=== PATIENT | male | born 1945 | race American Indian/Alaskan Native ===

== ENCOUNTER 2018-07-06 17:21 | Emergency (ER) | payer OTHER ==
[2018-07-06] MEDS ORDERED: VANCOMYCIN/NS 1 GM/250 ML 1 GM/250 ML BAG IV ONE (17:52)
[2018-07-06 18:35] LABS: BUN/Creatinine Ratio 10; Blood Urea Nitrogen 9 mg/dL (9-20); Calcium 9.3 mg/dL (8.4-10.2); Hemolysis Index 5
--- NOTE | 2018-07-06 18:39 | Emergency Department Report ---
HPI - General Chief Complaint: Extremity Problem,Nontraumatic Time Seen by Provider: 07/06/18 17:51 - HPI HPI: 73-year-old male presents to the emergency department with a complaint of swelling, redness and pain to the left foot that has been going on and getting progressively worse over the past week. Although he did not see any insect or see himself getting bitten, he guesses that maybe it started off as some type of an insect bite. He denies any past medical history. He has had a few days of subjective fever. He took an aspirin this morning and has taken 1 or 2 doses of one of his 's penicillin antibiotic pills. His primary care physician is Dr. Vega. No recent travel or sick contacts at home. ED Past Medical Hx - Past Medical History Previous Medical History?: No - Surgical History Past Surgical History?: No - Social History Smoking Status: Never Smoker Substance Use Type: Alcohol - Medications Home Medications: Home Medications Medication Instructions Recorded Confirmed Last Taken Type HYDROcodone/APAP 5-325 [[place] 1 each PO Q6HR PRN #12 tablet 07/06/18 Unknown Rx 5/325] Sulfamethoxazole/Trimethoprim 1 each PO BID #14 tablet 07/06/18 Unknown Rx [Bactrim DS TAB] cephALEXin [Keflex] 1,000 mg PO Q12HR #28 cap 07/06/18 Unknown Rx ED Review of Systems ROS: Stated complaint: LEFT FOOT SWOLLEN Other details as noted in HPI Comment: All other systems reviewed and negative Constitutional: chills, fever Eyes: denies: eye pain, eye discharge, vision change ENT: as per HPI Respiratory: denies: cough, shortness of breath, wheezing Cardiovascular: denies: chest pain, palpitations Gastrointestinal: denies: abdominal pain, nausea, diarrhea Genitourinary: denies: urgency, dysuria Musculoskeletal: joint swelling, arthralgia Skin: rash, change in color Neurological: denies: headache, weakness Physical Exam - Physical Exam Vital Signs: Vital Signs 07/06/18 17:34 Temperature 99.4 F Pulse Rate 105 H Respiratory 16 Rate Blood Pressure 129/56 O2 Sat by Pulse 97 Oximetry Physical Exam: GENERAL: The patient is well-developed well-nourished. HEENT: Normocephalic. Atraumatic. Patient has moist mucous membranes. EYES: Extraocular motions are intact. Pupils are equal and reactive to light bilaterally. NECK: Supple. Trachea is midline. CHEST/LUNGS: Clear to auscultation. There is no respiratory distress noted. HEART/CARDIOVASCULAR: Regular. There is no tachycardia. There is no gallop rub or murmur. ABDOMEN: Abdomen is soft, nontender. Patient has normal bowel sounds. There is no abdominal distention. SKIN: Patient has erythema and nonpitting swelling to the dorsum of the left foot consistent with a cellulitis. No fluctuance or crepitus. NEURO: The patient is awake, alert, and oriented. The patient is cooperative. The patient has no focal neurologic deficits. The patient has normal speech. MUSCULOSKELETAL: There is some tenderness on palpation to the dorsum of the left foot with patient has a cellulitis.. There is no limitation range of motion. There is no evidence of acute injury. ED Course Vital Signs 07/06/18 17:34 Temperature 99.4 F Pulse Rate 105 H Respiratory 16 Rate Blood Pressure 129/56 O2 Sat by Pulse 97 Oximetry ED Medical Decision Making - Lab Data Result diagrams: 07/06/18 17:58 07/06/18 17:58 - Radiology Data Radiology results: image reviewed interpreted by me: X-ray of the left foot does not show any subcutaneous gas, fracture, dislocation or signs of osteomyelitis. - Medical Decision Making Patient presents with a one-week history of some redness and swelling and discomfort to the left foot. On examination it appears consistent with a cellulitis. There is no crepitus or obvious fluctuants. X-ray was done that does not show any subcutaneous gas, signs of osteomyelitis, fracture, dislocation or any other acute process. Patient's labs were mostly unremarkable. There was no leukocytosis. Patient is afebrile with stable vitals. There was a slightly elevated first lactic acid level became down to a normal level with some IV fluid. Patient was given a dose of IV antibiotics. We will attempt to treat this patient outpatient to start if there is any worsening of his symptoms, signs of lymphangitis, development of a high-grade fever, or any distress, the patient will return to the emergency department. Otherwise he will follow-up with his primary care physician. He went home on antibiotics as well as pain medication. - Differential Diagnosis cellulitis, osteomyelitis, abscess, venous stasis Critical Care Time: No Critical care attestation.: If time is entered above; I have spent that time in minutes in the direct care of this critically ill patient, excluding procedure time. ED Disposition Clinical Impression: Cellulitis of left foot, Left foot pain Disposition: TO HOME OR SELFCARE Is pt being admited?: No Condition: Stable Instructions: Cellulitis (ED) Additional Instructions: Please follow-up with your primary care physician in the next few days. Take the antibiotics as prescribed. Return to the emergency department immediately with any worsening of her symptoms, streaking of red up the leg, development of fever, or with any acute distress. You have been prescribed a medication that can be sedating. Therefore this medication should not be mixed with alcohol of any quantity, and cannot be taken prior to driving, working, or being responsible for children. Prescriptions: cephALEXin [Keflex] 1,000 mg PO Q12HR #28 cap HYDROcodone/APAP 5-325 [[place] 5/325] 1 each PO Q6HR PRN #12 tablet PRN Reason: Pain Sulfamethoxazole/Trimethoprim [Bactrim DS TAB] 1 each PO BID #14 tablet Referrals: MATT CANSECO MD [Primary Care Provider] - 3-5 Days RAMILA REYES MD [Staff Physician] - 3-5 Days Time of Disposition: 19:52
[2018-07-06 18:42] LABS: Basophils % (Auto) 0.4 % (0.0-1.8); Eosinophils % (Auto) 0.4 % (0.0-4.3); Hemoglobin 11.9 gm/dl (11.8-15.2); Lymphocytes # (Auto) 0.7 K/mm3 (1.2-5.4); Lymphocytes % (Auto) 7.2 % (13.4-35.0); Mean Corpuscular HGB Conc 33 % (32-34); Mean Corpuscular Hemoglobin 30 pg (28-32); Mean Corpuscular Volume 91 fl (84-94); Monocytes # (Auto) 1.4 K/mm3 (0.0-0.8); Monocytes % (Auto) 14.7 % (0.0-7.3); Platelet Count 264 K/mm3 (140-440); Red Blood Count 3.95 M/mm3 (3.65-5.03); Red Cell Distribution Width 13.4 % (13.2-15.2)
--- NOTE | 2018-07-06 18:42 | XRay Report ---
FINAL REPORT EXAM: XR FOOT 3+V LT HISTORY: foot pain, infection TECHNIQUE: 3 views of left foot. PRIORS: None. FINDINGS: Diffuse osteopenia. No apparent fracture, dislocation or obvious osseous destruction. Joint spaces maintained. Diffuse dorsal soft tissue edema in the mid and forefoot. IMPRESSION: 1. No acute osseous abnormality. 2. Soft tissue edema.
[2018-07-06] MEDS ORDERED: NACL 0.9% 1000 ML 1,000 ML IV ONE (19:00)
[2018-07-06] MEDS ORDERED: NORCO 5/325 PO ONE (19:49)
[2018-07-06 19:56] VITALS: BP 123/64
[2018-07-06] MEDS ORDERED: TYLENOL ONE (20:37)
[2018-07-06] MEDS ORDERED: TYLENOL PO ONE (20:45)
== END 2018-07-06 21:07 | disposition home or self-care (01) ==
LOC: ED 17:21
DX: L03.116 Cellulitis of left lower limb (principal)
CPT/HCPCS: 36415; 73630; 80048; 82140; 85025; 87040; 96365; 99284; J3370; J7030

== ENCOUNTER 2019-01-12 17:15 | Inpatient (IN) | payer MEDICARE, OTHER ==
[2019-01-12] MEDS ORDERED: ACTIVASE ONE (17:31)
[2019-01-12] MEDS ORDERED: NACL 0.9% 1000 ML 1,000 ML ONE (17:32)
--- NOTE | 2019-01-12 17:40 | Cat Scan Report ---
PROCEDURE: CT head without contrast. TECHNIQUE: Computerized tomography of the head was performed without contrast material. CT DOSE LENGTH PRODUCT: 928.6 mGycm HISTORY: Stroke symptoms. COMPARISONS: None. FINDINGS: There is mild cerebral atrophy. There is minimal evidence of chronic ischemic white matter disease. T here are no definite signs of acute infarction. An MRI scan with diffusion-weighted imaging is the mo st sensitive means of detecting an acute stroke. There are no mass lesions. There is no intracranial hemorrhage. The calvarium appears intact. The mastoid air cells and paranasal sinuses are clear as fa r as visualized. IMPRESSION: Normal study for age. This document is electronically signed by Channing Anna MD., Jan 12 2019 05:38:02 PM ET
[2019-01-12 17:51] LABS: Basophils % (Auto) 0.7 % (0.0-1.8); Eosinophils # (Auto) 0.1 K/mm3 (0.0-0.4); Eosinophils % (Auto) 1.7 % (0.0-4.3); Hematocrit 32.1 % (35.5-45.6); Hemoglobin 10.9 gm/dl (11.8-15.2); Lymphocytes # (Auto) 0.9 K/mm3 (1.2-5.4); Lymphocytes % (Auto) 24.1 % (13.4-35.0); Mean Corpuscular HGB Conc 34 % (32-34); Mean Corpuscular Volume 91 fl (84-94); Monocytes # (Auto) 0.4 K/mm3 (0.0-0.8); Monocytes % (Auto) 12.1 % (0.0-7.3); Platelet Count 189 K/mm3 (140-440); Red Blood Count 3.52 M/mm3 (3.65-5.03); Red Cell Distribution Width 14.1 % (13.2-15.2)
[2019-01-12] MEDS ORDERED: NACL 0.9% IV ONE (17:53)
[2019-01-12] MEDS ORDERED: NORMODYNE IV PRN (17:53)
[2019-01-12] MEDS ORDERED: ACTIVASE IV ONE ×2 (17:53)
--- NOTE | 2019-01-12 17:55 | Emergency Department Report ---
ED Neuro Deficit HPI - General Chief Complaint: Neuro Symptoms/Deficit Stated Complaint: CVA Time Seen by Provider: 01/12/19 17:17 Source: patient, family, EMS (verbal report received from EMS.ems notes not available at time of chart dictation), RN notes reviewed Mode of arrival: Stretcher Limitations: Physical Limitation - History of Present Illness Initial Comments: Primary care DrEstefany: Megan Villa This is a 73-year-old gentleman, not known to this provider previously, presenting to the emergency room with EMS as a possible code stroke. Patient reports being in his usual state of health, until approximately 4:30 PM this afternoon. At around that time, developed left-sided weakness, and facial droop. Emergency medical services were contacted. Accu-Chek normal in the field. Accu-Chek normal in the emergency room. In the emergency room, patient found to be awake, alert, oriented, with left-sided weakness and facial droop. He reported no contraindications to TPA. Noncontrast CT scan of the brain was found negative for acute disease. Ext ensive discussion had with patient and . Risks and benefits of TPA were discussed with both of them, including the possibility of fatal hemorrhagic conversion/complication, , and allergic reaction. Patient and family have given informed consent for TPA. Patient also seen and interviewed stroke neurology, Dr. Jose Dalton, who agreed with administration of TPA. Currently, patient's left arm weakness appears to be improved. His left leg weakness improved. Left facial droop is still present although improved. Angiogram of the head and neck has been performed, and interpretation is pending to assess for potential large vessel occlusion. -: Sudden Location: left face, right arm, left leg Presenting Symptoms: Present: Weak/Paralyzed One Side History of same: No Place: home Severity: severe Quality: weak Improves With: none Worsens With: none On Anticoagulants: No Context: sudden onset - Related Data Home Medications: Home Medications Medication Instructions Recorded Confirmed Last Taken Amlodipine Besylate [Norvasc] 5 mg PO DAILY 01/12/19 01/12/19 Unknown AtorvaSTATin [Lipitor] 20 mg PO DAILY 01/12/19 01/12/19 Unknown Ferrous Sulfate [Iron 325 MG] 325 mg PO BID 01/12/19 01/12/19 Unknown Lisinopril [Zestril TAB] 40 mg PO DAILY 01/12/19 01/12/19 Unknown Allergies/Adverse Reactions: Allergies Allergy/AdvReac Type Severity Reaction Status Date / Time No Known Allergies Allergy Verified 07/06/18 17:34 ED Review of Systems ROS: Stated complaint: CVA Other details as noted in HPI Constitutional: denies: fever Eyes: denies: eye discharge ENT: denies: epistaxis Respiratory: denies: cough Cardiovascular: denies: chest pain Gastrointestinal: denies: abdominal pain, hematemesis, melena, hematochezia Genitourinary: denies: hematuria Musculoskeletal: denies: back pain Neurological: weakness, numbness, paresthesias ED Past Medical Hx - Social History Smoking Status: Never Smoker Substance Use Type: Alcohol - Medications Home Medications: Home Medications Medication Instructions Recorded Confirmed Last Taken Type Amlodipine Besylate [Norvasc] 5 mg PO DAILY 01/12/19 01/12/19 Unknown History AtorvaSTATin [Lipitor] 20 mg PO DAILY 01/12/19 01/12/19 Unknown History Ferrous Sulfate [Iron 325 MG] 325 mg PO BID 01/12/19 01/12/19 Unknown History Lisinopril [Zestril TAB] 40 mg PO DAILY 01/12/19 01/12/19 Unknown History ED Neuro Physical Exam - General Limitations: Physical Limitation General appearance: alert, anxious, in distress Suspected Stroke: Yes - Head Head exam: Present: atraumatic, normocephalic - Eye Eye exam: Present: normal appearance, PERRL, EOMI. Absent: nystagmus - ENT ENT exam: Present: normal exam, normal orophraynx, mucous membranes moist, normal external ear exam - Neck Neck exam: Present: normal inspection, full ROM. Absent: tenderness, meningismus - Respiratory Respiratory exam: Present: normal lung sounds bilaterally. Absent: respiratory distress - Cardiovascular Cardiovascular Exam: Present: regular rate, normal rhythm, normal heart sounds. Absent: bradycardia, tachycardia, irregular rhythm, systolic murmur, diastolic murmur, rubs, gallop - GI/Abdominal GI/Abdominal exam: Present: soft. Absent: distended, tenderness, guarding, rebound, rigid, pulsatile mass - Rectal Rectal exam: Present: deferred - Extremities Exam Extremities exam: Present: normal inspection, full ROM (right arm, right leg), other (2+ pulses noted in the bilateral upper, lower extremities. Compartments soft. No long bony tenderness. The pelvis is stable.). Absent: pedal edema, joint swelling, calf tenderness - Back Exam Back exam: Present: normal inspection, full ROM. Absent: tenderness, CVA tenderness (R), paraspinal tenderness, vertebral tenderness - Neurological Exam Neurological exam: Present: alert, oriented X3, motor sensory deficit (there is left-sided leg weakness. There is left-sided arm weakness. There is left-sided facial droop.) - NIHSS Assessment Interval: Baseline 1a. Level of Consciousness: alert/keenly responsive 1b. LOC Questions: answers both correctly 1c. LOC Commands: performs tasks correctly 2. Best Gaze: normal 3. Visual: no visual loss 4. Facial Palsy: minor paralysis 5b. Motor Arm Right: no drift 5a. Motor Arm Left: some gravity effort 6a. Motor Leg Left: some gravity effort 6b. Motor Leg Right: no drift 7. Limb Ataxia: absent 8. Sensory: normal 9. Best Language: no aphasia 10. Dysarthria: normal 11. Extinction/Inattention: no abnormality Total Score: 5 Stroke Severity: Moderate Stroke - Psychiatric Psychiatric exam: Present: anxious - Skin Skin exam: Present: warm, dry, intact, normal color. Absent: rash ED Course Vital Signs 01/12/19 01/12/19 01/12/19 17:37 17:42 17:46 Temperature Pulse Rate 63 63 Pulse Rate [ 64 Left Arm] Respiratory 18 14 Rate Respiratory 16 Rate [Left Arm] Blood Pressure Blood Pressure 133/73 [Left Arm] Blood Pressure 131/72 [Right] O2 Sat by Pulse 98 100 Oximetry O2 Sat by Pulse 100 Oximetry [Left Arm] 01/12/19 01/12/19 01/12/19 17:58 17:59 18:15 Temperature Pulse Rate 62 72 58 L Pulse Rate [ Left Arm] Respiratory 15 16 17 Rate Respiratory Rate [Left Arm] Blood Pressure 145/76 Blood Pressure 145/71 [Left Arm] Blood Pressure 130/80 [Right] O2 Sat by Pulse 100 99 100 Oximetry O2 Sat by Pulse Oximetry [Left Arm] 01/12/19 01/12/19 01/12/19 18:20 18:23 18:25 Temperature Pulse Rate 57 L 60 60 Pulse Rate [ Left Arm] Respiratory 17 13 18 Rate Respiratory Rate [Left Arm] Blood Pressure 150/78 150/78 155/77 Blood Pressure [Left Arm] Blood Pressure 155/77 [Right] O2 Sat by Pulse 100 100 100 Oximetry O2 Sat by Pulse Oximetry [Left Arm] 01/12/19 01/12/19 01/12/19 18:26 18:29 18:31 Temperature Pulse Rate 59 L 58 L 64 Pulse Rate [ Left Arm] Respiratory 16 14 16 Rate Respiratory Rate [Left Arm] Blood Pressure 155/77 155/77 155/79 Blood Pressure [Left Arm] Blood Pressure [Right] O2 Sat by Pulse 99 100 99 Oximetry O2 Sat by Pulse Oximetry [Left Arm] 01/12/19 01/12/19 01/12/19 18:33 18:34 18:35 Temperature 98.3 F Pulse Rate 56 L 78 61 Pulse Rate [ Left Arm] Respiratory 15 16 13 Rate Respiratory Rate [Left Arm] Blood Pressure 155/79 130/82 151/83 Blood Pressure [Left Arm] Blood Pressure [Right] O2 Sat by Pulse 100 99 99 Oximetry O2 Sat by Pulse Oximetry [Left Arm] 01/12/19 01/12/19 01/12/19 18:36 18:39 18:41 Temperature Pulse Rate 61 64 61 Pulse Rate [ Left Arm] Respiratory 14 17 14 Rate Respiratory Rate [Left Arm] Blood Pressure 151/83 151/83 149/73 Blood Pressure [Left Arm] Blood Pressure [Right] O2 Sat by Pulse 99 98 100 Oximetry O2 Sat by Pulse Oximetry [Left Arm] 01/12/19 01/12/19 01/12/19 18:43 18:45 18:46 Temperature Pulse Rate 59 L 62 61 Pulse Rate [ Left Arm] Respiratory 15 17 13 Rate Respiratory Rate [Left Arm] Blood Pressure 149/73 154/79 154/79 Blood Pressure [Left Arm] Blood Pressure [Right] O2 Sat by Pulse 100 100 100 Oximetry O2 Sat by Pulse Oximetry [Left Arm] 01/12/19 01/12/19 18:58 19:01 Temperature Pulse Rate 61 60 Pulse Rate [ Left Arm] Respiratory 15 11 L Rate Respiratory Rate [Left Arm] Blood Pressure 153/77 Blood Pressure [Left Arm] Blood Pressure [Right] O2 Sat by Pulse 100 100 Oximetry O2 Sat by Pulse Oximetry [Left Arm] - Reevaluation(s) Reevaluation #1: 01/12/19 18:55 Differential diagnosis, including but not limited to: Stroke, TIA, conversion d isorder, electrolyte derangement, Sam's paralysis Assessment and plan: 73-year-old gentleman with symptoms concerning for acute ischemic stroke. Patient meets criteria for administration of TPA. Risks and benefits/alternatives were discussed extensively with patient and , in conjunction with our consulting stroke neurology specialist. Patient and have given informed consent for TPA administration. On reexamination, strength and range of motion appeared to be improved in the left arm and leg. Left facial droop appears to be improved. [facility] called this provider and informed me that the Angiogram of the head and neck have not demonstrate any large vessel occlusion that would require transfer for emergent surgical intervention. The patient will be admitted to this hospital for post TPA and acute stroke care. Critical care physician on-call is paged. Hospital physician plant technician/control room operator is paged. Discussed findings with patient and . 01/12/19 19:15 Reevaluation #2: 01/12/19 19:01 Dr Herrera to admit to the medical service Reevaluation #3: 01/12/19 20:13 The angiogram report is reviewed and appreciated. Found to have an incidental left-sided carotid stenosis without plaque. I do not anticipate that this would require emergent endovascular intervention. will discuss with endovascular stroke at [place] Reevaluation #4: 01/12/19 20:20 CT angiogram discussed with interventional stroke neurology at [place], Dr. Chelsie Velázquez, who indicates these findings, in conjunction with the history and physical, did not require emergent endovascular intervention. He advises that this is likely an incidental finding, and does not require emergent or urgent intervention. He advises that this may be followed up as an outpatient, and i am in agreement. - Consultations Consultation #1: 01/12/19 19:16 Dr Britney Santos to follow and agrees with placement into the ICU - Lab Data Result diagrams: 01/12/19 17:35 01/12/19 17:35 Lab Results 01/12/19 01/12/19 01/12/19 Range/Units 17:35 17:35 17:35 WBC 3.6 L (4.5-11.0) K/mm3 RBC 3.52 L (3.65-5.03) M/mm3 Hgb 10.9 L (11.8-15.2) gm/dl Hct 32.1 L (35.5-45.6) % MCV 91 (84-94) fl MCH 31 (28-32) pg MCHC 34 (32-34) % RDW 14.1 (13.2-15.2) % Plt Count 189 (140-440) K/mm3 Lymph % (Auto) 24.1 (13.4-35.0) % Sanders % (Auto) 12.1 H (0.0-7.3) % Eos % (Auto) 1.7 (0.0-4.3) % Baso % (Auto) 0.7 (0.0-1.8) % Lymph # 0.9 L (1.2-5.4) K/mm3 Sanders # 0.4 (0.0-0.8) K/mm3 Eos # 0.1 (0.0-0.4) K/mm3 Baso # 0.0 (0.0-0.1) K/mm3 Seg Neutrophils % 61.4 (40.0-70.0) % Seg Neutrophils # 2.2 (1.8-7.7) K/mm3 PT 13.7 (12.2-14.9) Sec. INR 0.99 (0.87-1.13) APTT 28.0 (24.2-36.6) Sec. Thrombin Time 16.5 (15.1-19.6) Sec. Sodium 142 (137-145) mmol/L Potassium 3.3 L (3.6-5.0) mmol/L Chloride 106.4 (98-107) mmol/L Carbon Dioxide 19 L (22-30) mmol/L Anion Gap 20 mmol/L BUN 16 (9-20) mg/dL Creatinine 1.4 (0.8-1.5) mg/dL Estimated GFR > 60 ml/min BUN/Creatinine Ratio 11 % Glucose 166 H (75-100) mg/dL Calcium 8.7 (8.4-10.2) mg/dL Magnesium (1.7-2.3) mg/dL Total Bilirubin 0.80 (0.1-1.2) mg/dL AST 73 H (5-40) units/L ALT 54 (7-56) units/L Alkaline Phosphatase 98 (35-129) units/L Total Creatine Kinase 135 (55-170) units/L CK-MB (CK-2) 3.9 (0.0-4.0) ng/mL CK-MB (CK-2) Rel Index 2.8 (0-4) Troponin T < 0.010 (0.00-0.029) ng/mL Total Protein 5.7 L (6.3-8.2) g/dL Albumin 3.2 L (3.9-5) g/dL Albumin/Globulin Ratio 1.3 % 01/12/19 Range/Units 17:35 WBC (4.5-11.0) K/mm3 RBC (3.65-5.03) M/mm3 Hgb (11.8-15.2) gm/dl Hct (35.5-45.6) % MCV (84-94) fl MCH (28-32) pg MCHC (32-34) % RDW (13.2-15.2) % Plt Count (140-440) K/mm3 Lymph % (Auto) (13.4-35.0) % Sanders % (Auto) (0.0-7.3) % Eos % (Auto) (0.0-4.3) % Baso % (Auto) (0.0-1.8) % Lymph # (1.2-5.4) K/mm3 Sanders # (0.0-0.8) K/mm3 Eos # (0.0-0.4) K/mm3 Baso # (0.0-0.1) K/mm3 Seg Neutrophils % (40.0-70.0) % Seg Neutrophils # (1.8-7.7) K/mm3 PT (12.2-14.9) Sec. INR (0.87-1.13) APTT (24.2-36.6) Sec. Thrombin Time (15.1-19.6) Sec. Sodium (137-145) mmol/L Potassium (3.6-5.0) mmol/L Chloride (98-107) mmol/L Carbon Dioxide (22-30) mmol/L Anion Gap mmol/L BUN (9-20) mg/dL Creatinine (0.8-1.5) mg/dL Estimated GFR ml/min BUN/Creatinine Ratio % Glucose (75-100) mg/dL Calcium (8.4-10.2) mg/dL Magnesium 1.60 L (1.7-2.3) mg/dL Total Bilirubin (0.1-1.2) mg/dL AST (5-40) units/L ALT (7-56) units/L Alkaline Phosphatase (35-129) units/L Total Creatine Kinase (55-170) units/L CK-MB (CK-2) (0.0-4.0) ng/mL CK-MB (CK-2) Rel Index (0-4) Troponin T (0.00-0.029) ng/mL Total Protein (6.3-8.2) g/dL Albumin (3.9-5) g/dL Albumin/Globulin Ratio % Vital Signs 01/12/19 01/12/19 01/12/19 17:37 17:42 17:46 Temperature Pulse Rate 63 63 Pulse Rate [ 64 Left Arm] Respiratory 18 14 Rate Respiratory 16 Rate [Left Arm] Blood Pressure Blood Pressure 133/73 [Left Arm] Blood Pressure 131/72 [Right] O2 Sat by Pulse 98 100 Oximetry O2 Sat by Pulse 100 Oximetry [Left Arm] 01/12/19 01/12/19 01/12/19 17:58 17:59 18:15 Temperature Pulse Rate 62 72 58 L Pulse Rate [ Left Arm] Respiratory 15 16 17 Rate Respiratory Rate [Left Arm] Blood Pressure 145/76 Blood Pressure 145/71 [Left Arm] Blood Pressure 130/80 [Right] O2 Sat by Pulse 100 99 100 Oximetry O2 Sat by Pulse Oximetry [Left Arm] 01/12/19 01/12/19 01/12/19 18:20 18:23 18:25 Temperature Pulse Rate 57 L 60 60 Pulse Rate [ Left Arm] Respiratory 17 13 18 Rate Respiratory Rate [Left Arm] Blood Pressure 150/78 150/78 155/77 Blood Pressure [Left Arm] Blood Pressure 155/77 [Right] O2 Sat by Pulse 100 100 100 Oximetry O2 Sat by Pulse Oximetry [Left Arm] 01/12/19 01/12/19 01/12/19 18:26 18:29 18:31 Temperature Pulse Rate 59 L 58 L 64 Pulse Rate [ Left Arm] Respiratory 16 14 16 Rate Respiratory Rate [Left Arm] Blood Pressure 155/77 155/77 155/79 Blood Pressure [Left Arm] Blood Pressure [Right] O2 Sat by Pulse 99 100 99 Oximetry O2 Sat by Pulse Oximetry [Left Arm] 01/12/19 18:34 Temperature 98.3 F Pulse Rate 78 Pulse Rate [ Left Arm] Respiratory 16 Rate Respiratory Rate [Left Arm] Blood Pressure 130/82 Blood Pressure [Left Arm] Blood Pressure [Right] O2 Sat by Pulse 99 Oximetry O2 Sat by Pulse Oximetry [Left Arm] - EKG Data -: EKG Interpreted by Ks EKG shows normal: sinus rhythm Rate: normal 01/12/19 18:54 Sinus rhythm, 64 beats per minute, low voltage, borderline left axis deviation, QTC within normal limits, not having chest pain, MD interval within normal limits, this is a nonspecifically abnormal EKG. It is not consistent with ST e levation myocardial infarction. - Radiology Data Radiology results: report reviewed, image reviewed CT scan of the brain is negative for acute disease. Print Report Referring Physician: CHANNING KOWALSKI Patient Name: LUCERO REDDY Date of : 1945 Sex: Male Report Date: 2019-01-12 Report Status: [place] [address] Cat Scan Report Signed Patient: LUCERO REDDY MR#: [id number] : 1945 Acct:[id number] Age/Sex: 73 / M ADM Date: 01/12/19 Loc: CC1 [id number]: SUZIE HERRERA MD Ordering Physician: CHANNING KOWALSKI MD Date of Service: 01/12/19 Procedure(s): CT angio head Accession Number(s): [id number] cc: CHANNING KOWALSKI MD PROCEDURE: CT angiogram head with contrast. TECHNIQUE: Computerized tomographic angiography of the head was performed after the IV injection of iodinated nonionic contrast including image processing. The image data was postprocessed using 2-dimensional multiplanar reformatted (MPR) and 3-dimensional (MIP and/or volume rendered) techniques. CT DOSE LENGTH PRODUCT: 928.6 mGycm HISTORY: Stroke symptoms. COMPARISONS: None. FINDINGS: The distal right internal carotid artery appears normal. The distal left internal carotid artery is small. This is probably secondary to reduced perfusion pressure due to the severe cervical carotid stenosis. Both anterior cerebral arteries are patent. The anterior communicating artery is patent. Both middle cerebral arteries are patent. Both posterior communicating arteries are probably patent. Both distal vertebral arteries are patent with the right vertebral being dominant. Both posterior inferior cerebellar arteries are patent. The basilar artery is patent. The right anterior inferior cerebellar artery is faintly visible. The left AICA is not definitely discernible. Both superior cerebellar and both posterior cerebral arteries are patent. There are no signs of aneurysm disease. There is no evidence of a vasculitis. There are no signs of abnormal contrast enhancement within the brain parenchyma. IMPRESSION: Narrow distal left internal carotid artery which is likely secondary to diminished perfusion pressure. Otherwise normal study. This document is electronically signed by Channing Ramos MD., Jan 12 2019 08:01:42 PM ET Transcribed By: MRM Dictated By: CHANNING RAMOS MD Electronically Authenticated By: CHANNING RAMOS MD Signed Date/Time: 01/12/192002 Print Report Referring Physician: CHANNING KOWALSKI Patient Name: LUCERO REDDY Date of : 1945 Sex: Male Report Date: 2019-01-12 Report Status: [place] [address] Cat Scan Report Signed Patient: LUCERO REDDY MR#: [id number] : 1945 Acct:[id number] Age/Sex: 73 / M ADM Date: 01/12/19 Loc: CC1 [id number]: SUZIE HERRERA MD Ordering Physician: CHANNING KOWALSKI MD Date of Service: 01/12/19 Procedure(s): CT angio neck Accession Number(s): [id number] cc: CHANNING KOWALSKI MD PROCEDURE: CT angiogram neck with contrast. TECHNIQUE: Computerized tomographic angiography of the neck was performed after the IV injection of iodinated nonionic contrast including image processing. The image data was postprocessed using 2- dimensional multiplanar reformatted (MPR) and 3-dimensional (MIP and/or volume rendered) techniques. CT DOSE LENGTH PRODUCT: 826.7 mGycm HISTORY: Stroke symptoms. COMPARISONS: None. Note: Assessment of carotid artery stenosis is based on measurement of the distal internal carotid artery diameter as the denominator for stenosis calculations and the [place] Symptomatic Carotid Endarterectomy Trial (NASCET) stenosis criteria. FINDINGS: The origins of the innominate artery, left common carotid artery and left subclavian artery are widely patent. Both common carotid arteries are widely patent. There is a small amount of calcified plaque at the right carotid artery bifurcation. The origins of the internal carotid and external carotid arteries are widely patent. The cervical portion of the right internal carotid artery is widely patent. There is a small amount of calcified plaque on the lateral side of the left carotid bulb. There is additional calcified plaque surrounding the proximal left internal carotid artery. Approximately 1.5 cm beyond the origin of the left internal carotid artery there is a critical concentric stenosis. The lumen diameter is decreased by approximately 95%. The cervical portion of the internal carotid artery distal to this stenosis is patent but small. This is likely secondary to reduced perfusion pressure. The left external carotid artery is widely patent. Both vertebral arteries are patent with the right vertebral being dominant. The soft tissues of the neck are unremarkable. The bones appear intact. The paranasal sinuses and mastoid air cells are clear. IMPRESSION: Critical 95% stenosis in the proximal left internal carotid artery. Satisfactory appearance of the right internal carotid artery. This document is electronically signed by Channing Ramos MD., Jan 12 2019 07:53:35 PM ET Transcribed By: MRM Dictated By: CHANNING RAMOS MD Electronically Authenticated By: CHANNING RAMOS MD Signed Date/Time: 01/12/191954 - Core Measures Measure Exclusions: not indicated - Thrombolytic Inclusion/Exclusion Thrombolytic Inclusion Criteria: Ischemic Stroke Onset< 3h, NIH Stroke Scale Deficit, Negative CT Scan for ICH, Age 18 or Older, Glucose of 50-400mg/dl Critical Care Time: Yes Critical care time in (mins) excluding proc time.: 120 Critical care attestation.: If time is entered above; I have spent that time in minutes in the direct care of this critically ill patient, excluding procedure time. ED Disposition Clinical Impression: Acute ischemic stroke Disposition: DC-09 OP ADMIT IP TO THIS HOSP Is pt being admited?: Yes Condition: Critical
[2019-01-12 18:01] LABS: INR 0.99 (0.87-1.13)
[2019-01-12 18:02] LABS: Thrombin Time 16.5 Sec. (15.1-19.6)
--- NOTE | 2019-01-12 18:11 | Emergency Department Report ---
Blank Doc - Documentation Documentation: [facility] TeleNeurology Consult Services Impression: * RO Acute Ischemic Stroke. Patient is a 73 year old man who presents with history of acute onset left sided weakness onset noted at 430 pm, witnessed onset. Presentation is suggestive of right MCA distribution cortical infarct. There is no indication of underlying anticoagulants intake, history of hemorrhagic complications, or recent procedures. The patient is deemed to be candidate for tPA thrombolytics. Risks, benefits, and potential alternatives, including no treatment, were explained to the patient and at bedside. Patient and expressed understanding of the above, and agreed to proceed with the above. IV tPA bolus was given without complications. Bolus was started. CTA head and neck obtained , and negative for LVO disease per radiology. Comments: LSN: 16:30 Arrival Time:1710 [facility] contacted: 1707 [facility] at bedside: 171 NIHSS assessment time: 171 tPA bolus time: 1736 Tele[employer]istsVerbal Consent totPA: I have explained to the patient/family/guardian the nature of the patients condition, the use oftPAfibrinolytic agent, and the benefits to be reasonably expected compared with alternative approaches. I have discussed the likelihood of major risks or complications of this procedure including (if applicable) but not limited to loss of limb function, brain damage, paralysis, hemorrhage, infection, complications from transfusion of blood components, drug reactions, blood clots and loss of life. I have also indicated that with any procedure there is always the possibility of an unexpected complication. All questions were answered and the patient/family/guardian express understanding of the treatment plan and consent to the procedure. Our recommendations are outlined below.? We will be seeing the patient back in follow up as noted.? Recommendations: * Patient received tPA thrombolytics without complications, and actually has had some improvement. * CTA head and neck did not show indication of LVO disease. * Patient is to be admitted with post tPA orders to the ICU as per protocol. * No antithrombtics or anticoagulants. * DVT prophylaxis. * Lipid panel. * MRI Head in am. Post tPA recommendations: Routine posttPAmonitoring including neuro checks and blood pressure control during/after treatment Monitor blood pressure Check blood pressure and NIHSS every 15 min for 2 h, then every 30 min for 6 h, and finally every hour for 16 h Systolic greater than 180OR diastolicgreater than 105: Option 1: Labetalol 10mg IV for 1 - 2 min May repeat or double labetalol every 10 min to maximum dose of 300 mg, or give initial labetalol dose, then start labetalol drip at 2 - 8 mg/min. Option 2: Nicardipine 5 mg/h IV infusion as initial dose and titrate to desired effect by increasing 2.5 mg/h every 5 min to maximum of 15 mg/h; If blood pressure is not controlled bylabetololor nicardipine, consider sodium nitroprusside. * Admission to ICU * CT brain 24 hours posttPA * NPO until swallowing screen performed and passed * No antiplatelet agents or anticoagulants (including heparinfor DVT prophylaxis) in first 24 hours * No Goldman catheter, nasogastric tube, arterial catheter or central venous catheter for 24hr, unless absolutely necessary * Telemetry * Inpatient Neurology Consultation * Stroke evaluation as per inpatient neurology recommendations Discussed with ED MD Seymour Dalton MD [employer] History of Present Illness Patient is a pleasant 73-year-old man who presents with history of left sided weakness. Patient's states that she observed him have a fall at 4:30 PM and since then, has had significant left upper and lower extremity weakness. No other associated symptoms identified. Patient has never had a prior history of intracranial hemorrhage and has not been on anticoagulants or antithrombotics. 1A: Level of Consciousness - Alert; keenly responsive 0 1B: Ask Month and Age - Both Questions Right 0 1C: 'Blink Eyes' & 'Squeeze Hands' - Performs Both Tasks 0 2: Test Horizontal Extraocular Movements - Normal 0 3: Test Visual Mendez - No Visual Loss 0 4: Test Facial Palsy - Minor paralysis (flat nasolabial fold, smile asymetry) +1 5A: Test Left Arm Motor Drift - Drift, hits bed +2 5B: Test Right Arm Motor Drift - No Drift for 10 Seconds 0 6A: Test Left Leg Motor Drift - No Movement +4 6B: Test Right Leg Motor Drift - No Drift for 5 Seconds 0 7: Test Limb Ataxia - No Ataxia 0 8: Test Sensation - Mild-Moderate Loss: Less Sharp/More Dull +1 9: Test Language/Aphasia - Normal; No aphasia 0 10: Test Dysarthria - Mild-Moderate Dysarthria: Slurring but can be understood +1 11: Test Extinction/Inattention - No abnormality 0 NIHSS 9 Medical Decision Making: - Extensive number of diagnosis or management options are considered above.? - Extensive amount of complex data reviewed.? - High risk of complication and/or morbidity or mortality are associated with differential diagnostic considerations above. - There may be Uncertain outcome and increased probability of prolonged functional impairment or high probability of severe prolonged functional impairment associated with some ofthese differential diagnosis. Medical Data Reviewed: 1.Data reviewed include clinical labs,radiology,?MedicalTests;? 2.Tests results discussed w/performing or interpreting physician;? 3.Obtaining/reviewing old medical records; 4.Obtaining case history from another source; 5.Independent review of image, tracing or specimen. Patient was informed the Neurology Consult would happen via telehealth (remote video) and consented to receiving care in this manner.
[2019-01-12 18:16] LABS: Creatine Kinase MB 3.9 ng/mL (0.0-4.0)
[2019-01-12 18:17] LABS: Alanine Aminotransferase 54 units/L (7-56); Albumin 3.2 g/dL (3.9-5); BUN/Creatinine Ratio 11; Blood Urea Nitrogen 16 mg/dL (9-20); Calcium 8.7 mg/dL (8.4-10.2); Hemolysis Index 9
[2019-01-12] MEDS ORDERED: K-DUR PO ONE ×2 (18:51→19:36)
[2019-01-12] MEDS ORDERED: DULCOLAX PR PRN (19:01)
[2019-01-12] MEDS ORDERED: PHENERGAN PR PRN (19:01)
[2019-01-12] MEDS ORDERED: ZOFRAN IV PRN (19:01)
[2019-01-12] MEDS ORDERED: REGLAN PO PRN (19:01)
[2019-01-12] MEDS ORDERED: SODIUM CHLORIDE FLUSH SYRINGE 10 ML IV PRN (19:01)
[2019-01-12] MEDS ORDERED: TYLENOL PO PRN (19:01)
[2019-01-12] MEDS ORDERED: MILK OF MAGNESIA PO PRN (19:01)
--- NOTE | 2019-01-12 19:06 | History and Physical Report ---
History of Present Illness Chief complaint: I feel weak on my left side History of present illness: 73 YO Male with HTN, HLD, Anemia presents to ED for evaluation. Pt was in his usual state of health and was doing work in his lawn. Pt went back into his home upon completion of his work around 1630hrs. Pt then experienced a sudden onset of dizziness and is unable to provide further details regarding his dizziness and confusion. Pt and son are at bedside and provide further details. As per family, the patient became momentarily confused and developed left-sided weakness, and facial droop. Emergency Medical Services was notified, and upon arrival the patient was found to have a neurologic deficit. A Code Stroke was called and the patient was transported to [facility]. Pt seen and evaluated in ED and found to have symptoms consistent with CVA. Teleneurology consulted, and patient treated with TPA with improvement in symptoms. Pt initiated on CVA protocol and admitted to ICU. Neurology consulted. Pt denies fever, chills, CP, Palpitations, NVD, Trauma, Falls, productive cough, skin rash, recent ill contacts, prolonged travel/immobility, unilateral leg swelling, calf pain, individual/family history of DVT/PE/Blood clotting disorders. No prior admission for review. All listed medication reconciled at time of exam. PCP: Corinne. Past History Past Medical History: anemia, hypertension, hyperlipidemia Past Surgical History: No surgical history, Other (reviewed) Social history: , lives with family. denies: smoking, alcohol abuse, prescription drug abuse Family history: hypertension Medications and Allergies Allergies Allergy/AdvReac Type Severity Reaction Status Date / Time No Known Allergies Allergy Verified 07/06/18 17:34 Home Medications Medication Instructions Recorded Confirmed Last Taken Type Amlodipine Besylate [Norvasc] 5 mg PO DAILY 01/12/19 01/12/19 Unknown History AtorvaSTATin [Lipitor] 20 mg PO DAILY 01/12/19 01/12/19 Unknown History Ferrous Sulfate [Iron 325 MG] 325 mg PO BID 01/12/19 01/12/19 Unknown History Lisinopril [Zestril TAB] 40 mg PO DAILY 01/12/19 01/12/19 Unknown History Active Meds: Active Medications Labetalol HCl (Normodyne) 10 mg IV Q5MIN PRN PRN Reason: to maintain SBP < 180 Review of Systems Constitutional: no weight loss, no weight gain, no fever, no chills Ears, nose, mouth and throat: no deferred, no ear pain, no ear discharge, no decreased hearing, no nose pain, no nasal discharge Cardiovascular: no chest pain, no orthopnea, no palpitations, no rapid/irregular heart beat Respiratory: no cough, no cough with sputum, no excessive sputum, no shortness of breath Gastrointestinal: no abdominal pain, no nausea, no vomiting, no diarrhea, no constipation, no hematemesis Genitourinary Male: no dysuria, no hematuria Rectal: no pain, no incontinence, no bleeding Musculoskeletal: no neck stiffness, no neck pain, no shooting arm pain Integumentary: no rash, no redness, no wounds, no jaundice Neurological: weakness, lack of coordination, change in speech, change in mentation, gait dysfunction, motor disturbance, sensory deficit, no parathesias, no tingling, no seizures, no syncope Psychiatric: no memory loss, no change in sleep habits, no sleep disturbances, no insomnia, no change in appetite, no paranoia, no anhedonia, no difficulties concentrating, no confusion, no irritability Endocrine: no cold intolerance, no heat intolerance, no excessive thirst, no polydipsia Hematologic/Lymphatic: no easy bruising, no lymphadenopathy, no lymphedema Allergic/Immunologic: no allergic rhinitis, no persistent infections, no anaphylaxis Exam - Constitutional Vitals: Temp Pulse Resp BP Pulse Ox 98.3 F 60 11 L 153/77 100 01/12/19 18:34 01/12/19 19:01 01/12/19 19:01 01/12/19 19:01 01/12/19 19:01 General appearance: Present: mild distress - EENT Eyes: Present: PERRL ENT: hearing intact, clear oral mucosa - Neck Neck: Present: supple, normal ROM - Respiratory Respiratory effort: normal Respiratory: bilateral: CTA - Cardiovascular Heart Sounds: Present: S1 & S2. Absent: rub, click - Extremities Extremities: pulses symmetrical, No edema Peripheral Pulses: within normal limits - Abdominal General gastrointestinal: Present: soft, non-tender, non-distended, normal bowel sounds Male genitourinary: Present: normal - Integumentary Integumentary: Present: clear, warm, dry - Musculoskeletal Musculoskeletal: gait normal, strength equal bilaterally - Psychiatric Psychiatric: appropriate mood/affect, intact judgment & insight - Neurologic Neurologic: CNII-XII intact, moves all extremities Results - Labs CBC & Chem 7: 01/12/19 17:35 01/12/19 17:35 Labs: Abnormal lab results 01/12/19 01/12/19 Range/Units 17:35 17:35 WBC 3.6 L (4.5-11.0) K/mm3 RBC 3.52 L (3.65-5.03) M/mm3 Hgb 10.9 L (11.8-15.2) gm/dl Hct 32.1 L (35.5-45.6) % [place] % (Auto) 12.1 H (0.0-7.3) % Lymph # 0.9 L (1.2-5.4) K/mm3 Potassium 3.3 L (3.6-5.0) mmol/L Carbon Dioxide 19 L (22-30) mmol/L Glucose 166 H (75-100) mg/dL AST 73 H (5-40) units/L Total Protein 5.7 L (6.3-8.2) g/dL Albumin 3.2 L (3.9-5) g/dL Assessment and Plan - Patient Problems (1) CVA (cerebral vascular accident) Current Visit: Yes Status: Acute Qualifiers: Precerebral and cerebral artery: middle cerebral artery Laterality of affected vessel: right Plan to address problem: Admit to ICU: Stroke Protocol: TPA administered in ED, CT Head, Teleneurology consulted, MRI Brain, MRA Brain, Lipid panel, statin therapy, PT/OT/ Speech therapy, neuro checks, seizure precautions, resume antiplatelet therapy 24 hours after TPA. (2) HTN (hypertension) Current Visit: Yes Status: Acute Qualifiers: Hypertension type: essential hypertension Qualified Code(s): I10 - Essential (primary) hypertension Plan to address problem: Monitor BP q shift, continue medical management, Goal systolic overnight less than 180. (3) HLD (hyperlipidemia) Current Visit: Yes Status: Acute Qualifiers: Hyperlipidemia type: mixed hyperlipidemia Qualified Code(s): E78.2 - Mixed hyperlipidemia Plan to address problem: Lipid panel, statin therapy, low cholesterol diet. (4) Anemia Current Visit: Yes Status: Acute Plan to address problem: CBC, Iron replacement therapy, (5) Acidosis Current Visit: Yes Status: Acute Plan to address problem: IVF resuscitation therapy, repeat bmp in AM, supportive care. (6) DVT prophylaxis Current Visit: Yes Status: Acute Plan to address problem: SCD to BLE, Hold anticoagulation S/P TPA administration.
--- NOTE | 2019-01-12 19:55 | Cat Scan Report ---
PROCEDURE: CT angiogram neck with contrast. TECHNIQUE: Computerized tomographic angiography of the neck was performed after the IV injection of iodinated nonionic contrast including image processing. The image data was postprocessed using 2-dime nsional multiplanar reformatted (MPR) and 3-dimensional (MIP and/or volume rendered) techniques. CT DOSE LENGTH PRODUCT: 826.7 mGycm HISTORY: Stroke symptoms. COMPARISONS: None. Note: Assessment of carotid artery stenosis is based on measurement of the distal internal carotid a rtery diameter as the denominator for stenosis calculations and the [place] Symptomatic Caroti d Endarterectomy Trial (NASCET) stenosis criteria. FINDINGS: The origins of the innominate artery, left common carotid artery and left subclavian artery are widel y patent. Both common carotid arteries are widely patent. There is a small amount of calcified plaque at the right carotid artery bifurcation. The origins of the internal carotid and external carotid ar teries are widely patent. The cervical portion of the right internal carotid artery is widely patent. There is a small amount of calcified plaque on the lateral side of the left carotid bulb. There is a dditional calcified plaque surrounding the proximal left internal carotid artery. Approximately 1.5 c m beyond the origin of the left internal carotid artery there is a critical concentric stenosis. The lumen diameter is decreased by approximately 95%. The cervical portion of the internal carotid artery distal to this stenosis is patent but small. This is likely secondary to reduced perfusion pressure. The left external carotid artery is widely patent. Both vertebral arteries are patent with the right vertebral being dominant. The soft tissues of the neck are unremarkable. The bones appear intact. Th e paranasal sinuses and mastoid air cells are clear. IMPRESSION: Critical 95% stenosis in the proximal left internal carotid artery. Satisfactory appeara nce of the right internal carotid artery. This document is electronically signed by Channing Anna MD., Jan 12 2019 07:53:35 PM ET
--- NOTE | 2019-01-12 20:03 | Cat Scan Report ---
PROCEDURE: CT angiogram head with contrast. TECHNIQUE: Computerized tomographic angiography of the head was performed after the IV injection of iodinated nonionic contrast including image processing. The image data was postprocessed using 2-dim ensional multiplanar reformatted (MPR) and 3-dimensional (MIP and/or volume rendered) techniques. CT DOSE LENGTH PRODUCT: 928.6 mGycm HISTORY: Stroke symptoms. COMPARISONS: None. FINDINGS: The distal right internal carotid artery appears normal. The distal left internal carotid artery is s mall. This is probably secondary to reduced perfusion pressure due to the severe cervical carotid reymundo nosis. Both anterior cerebral arteries are patent. The anterior communicating artery is patent. Both middle cerebral arteries are patent. Both posterior communicating arteries are probably patent. Both distal vertebral arteries are patent with the right vertebral being dominant. Both posterior inferior cerebellar arteries are patent. The basilar artery is patent. The right anterior inferior cerebellar artery is faintly visible. The left AICA is not definitely discernible. Both superior cerebellar and both posterior cerebral arteries are patent. There are no signs of aneurysm disease. There is no leena dence of a vasculitis. There are no signs of abnormal contrast enhancement within the brain parenchym a. IMPRESSION: Narrow distal left internal carotid artery which is likely secondary to diminished perfu connie pressure. Otherwise normal study. This document is electronically signed by Channing Anna MD., Jan 12 2019 08:01:42 PM ET
[2019-01-12] MEDS ORDERED: BENADRYL IV ONE (21:03)
[2019-01-12] MEDS ORDERED: BENADRYL ONE (22:26)
[2019-01-12] MEDS: FEOSOL PO SCH (23:00)
[2019-01-13 05:45] LABS: Chol/HDL Ratio 2.02 %
--- NOTE | 2019-01-13 09:10 | Magnetic Resonance Report ---
MRI BRAIN WITHOUT CONTRAST: 01/12/19 19:01:00 CLINICAL: Stroke. TECHNIQUE: Axial diffusion, T1, T2, gradient echo T2*, coronal and axial FLAIR and sagittal T1 sequences on a 1.5 Beba magnet. FINDINGS: The ventricles and sulci are mildly enlarged for age. Multifocal restricted diffusion involving right frontal lobe cortex, left frontal lobe white matter and right parietal subcortical white matter. The most affected area is the frontal lobe cortex with several gyri involved. Single foci of restricted diffusion in the right parietal lobe and the left frontal lobe white matter. Moderate bilateral multifocal subcortical and deep white matter hyperintensities on FLAIR and T2. The affected right frontal lobe gyri demonstrate swelling and T2 hyperintensity. No evidence of hemorrhage. Mild mass effect in the right frontal lobe. No extra-axial collection. No chronic microbleeds on the gradient echo sequence. Normal pituitary and optic chiasm. The brainstem and cerebellum are normal. Intact vascular flow voids. Normal sinuses. The orbits, and soft tissues are normal. Normal calvarium and skull base. IMPRESSION: 1. Multifocal acute/subacute nonhemorrhagic infarcts of the frontal lobes and right parietal lobe. The pattern is consistent with embolic infarcts. 2. Mild global cortical atrophy. 3. Moderate chronic white matter microangiopathy is.
--- NOTE | 2019-01-13 09:21 | Magnetic Resonance Report ---
MRA HEAD WITHOUT CONTRAST: 01/13/19 CLINICAL: Stroke. TECHNIQUE: Axial 3-D [id number] MR angiography of the [place] of [place] with review of axial source images. FINDINGS: The distal left ICA is tiny and there is reduced flow in the left ICA and MCA compared to the right. Patent bilateral FLOYD, MCA and [employer] with no high-grade stenoses. No aneurysms. Intact basilar and right vertebral arteries. The left vertebral artery is patent but tiny. IMPRESSION: Reduced flow in the left ICA and MCA which suggests a significant extracranial ICA stenosis. Suspect a high-grade stenosis of the proximal left vertebral artery.
[2019-01-13] MEDS ORDERED: NORVASC ONE (10:00)
[2019-01-13] MEDS: NORVASC PO SCH (10:03)
[2019-01-13] MEDS: FEOSOL PO SCH ×2 (10:27→21:33)
--- NOTE | 2019-01-13 10:38 | Vascular Lab Report ---
PROCEDURE: VL CAROTID DUPLEX BILAT TECHNIQUE: Carotid ultrasound. Degree of carotid stenosis calculated by indirect methods via the peak systolic velocities of the ICA and CCA and reference with the society of Radiologist and Ultrasound consensus conference radiology 2003. HISTORY: stroke COMPARISONS: None currently available. FINDINGS: Note: Measurement of carotid stenosis is based on flow velocity values that correlate with the [place] Symptomatic Carotid Endarterectomy Trial (NASCET) based stenosis criteria using the internal carotid artery diameter as the denominator for stenosis calculation. RIGHT CCA, ICA, and ECA (cm/s): 62, 143, and 49. Ratio = 2.3. LEFT CCA, ICA, and ECA (cm/s): 48, 796, and 50. Ratio = 16.8. There is plaque in both carotids. Both vertebral arteries demonstrate antegrade flow. Normal spectral rhythm is identified. IMPRESSION: * 50-79% stenosis at the distal right ICA. * 80-99% stenosis at the proximal left ICA. This document is electronically signed by Samuel Lucio MD., Jan 13 2019 10:35:25 AM ET
--- NOTE | 2019-01-13 11:20 | Progress Note ---
Assessment and Plan Assessment and plan: 73 YO Male with HTN, HLD, Anemia presents to ED for evaluation. Pt was in his usual state of health and was doing work in his lawn. Pt went back into his home upon completion of his work around 1630hrs. Pt then experienced a sudden onset of dizziness and is unable to provide further details regarding his dizziness and confusion. Pt and son are at bedside and provide further details. As per family, the patient became momentarily confused and developed left-sided weakness, and facial droop. Emergency Medical Services was notified, and upon arrival the patient was found to have a neurologic deficit. A Code Stroke was called and the patient was transported to [facility]. Pt seen and evaluated in ED and found to have symptoms consistent with CVA. Teleneurology consulted, and patient treated with TPA with improvement in symptoms. Pt initiated on CVA protocol and admitted to ICU. Neurology consulted. Pt denies fever, chills, CP, Palpitations, NVD, Trauma, Falls, productive cough, skin rash, recent ill contacts, prolonged travel/immobility, unilateral leg swelling, calf pain, individual/family history of DVT/PE/Blood clotting disorders. No prior admission for review. All listed medication reconciled at time of exam. PCP: Corinne. Today patient feels back to baseling, imaging studies consistent on MR Brain Carotid doppler: IMPRESSION: * 50-79% stenosis at the distal right ICA. * 80-99% stenosis at the proximal left ICA. MR brain: 1. Multifocal acute/subacute nonhemorrhagic infarcts of the frontal lobes and right parietal lobe. The pattern is consistent with embolic infarcts. 2. Mild global cortical atrophy. 3. Moderate chronic white matter microangiopathy is. CTA Neck: Critical 95% stenosis in the proximal left internal carotid artery. Satisfactory appearance of the right internal carotid artery. 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 The aggregate critical care time was [45] minutes. This time is in addition to time spent performing reported procedures but includes the following: [x] Data Review and interpretation [x] Patient assessment and monitoring of vital signs [x] Documentation [x] Medication orders and management History Interval history: Patient seen and examined at this time, resting comfortable. Hospitalist Physical - Physical exam Narrative exam: General appearance: Present: no acute distress. - EENT Eyes: Present: PERRL ENT: hearing intact, clear oral mucosa - Neck Neck: Present: supple, normal ROM - Respiratory Respiratory effort: normal Respiratory: bilateral: CTA - Cardiovascular Heart Sounds: Present: S1 & S2. Absent: rub, click - Extremities Extremities: pulses symmetrical, No edema Peripheral Pulses: within normal limits - Abdominal General gastrointestinal: Present: soft, non-tender, non-distended, normal bowel sounds Male genitourinary: Present: normal - Integumentary Integumentary: Present: clear, warm, dry - Musculoskeletal Musculoskeletal: gait normal, strength equal bilaterally - Psychiatric Psychiatric: appropriate mood/affect, intact judgment & insight - Neurologic Neurologic: CNII-XII intact, moves all extremities - Constitutional Vitals: Temp Pulse Resp BP Pulse Ox 98.3 F 61 18 118/72 95 01/12/19 18:34 01/13/19 10:55 01/13/19 10:55 01/13/19 10:55 01/13/19 10:55 General appearance: Present: no acute distress, mild distress - EENT Eyes: Present: PERRL Results - Labs CBC & Chem 7: 01/12/19 17:35 01/12/19 17:35 Labs: Laboratory Last Values WBC 3.6 K/mm3 (4.5-11.0) L 01/12/19 17:35 RBC 3.52 M/mm3 (3.65-5.03) L 01/12/19 17:35 Hgb 10.9 gm/dl (11.8-15.2) L 01/12/19 17:35 Hct 32.1 % (35.5-45.6) L 01/12/19 17:35 MCV 91 fl (84-94) 01/12/19 17:35 MCH 31 pg (28-32) 01/12/19 17:35 MCHC 34 % (32-34) 01/12/19 17:35 RDW 14.1 % (13.2-15.2) 01/12/19 17:35 Plt Count 189 K/mm3 (140-440) 01/12/19 17:35 Lymph % (Auto) 24.1 % (13.4-35.0) 01/12/19 17:35 [place] % (Auto) 12.1 % (0.0-7.3) H 01/12/19 17:35 Eos % (Auto) 1.7 % (0.0-4.3) 01/12/19 17:35 Baso % (Auto) 0.7 % (0.0-1.8) 01/12/19 17:35 Lymph # 0.9 K/mm3 (1.2-5.4) L 01/12/19 17:35 [place] # 0.4 K/mm3 (0.0-0.8) 01/12/19 17:35 Eos # 0.1 K/mm3 (0.0-0.4) 01/12/19 17:35 Baso # 0.0 K/mm3 (0.0-0.1) 01/12/19 17:35 Seg Neutrophils % 61.4 % (40.0-70.0) 01/12/19 17:35 Seg Neutrophils # 2.2 K/mm3 (1.8-7.7) 01/12/19 17:35 PT 13.7 Sec. (12.2-14.9) 01/12/19 17:35 INR 0.99 (0.87-1.13) 01/12/19 17:35 APTT 28.0 Sec. (24.2-36.6) 01/12/19 17:35 Thrombin Time 16.5 Sec. (15.1-19.6) 01/12/19 17:35 Sodium 142 mmol/L (137-145) 01/12/19 17:35 Potassium 3.3 mmol/L (3.6-5.0) L 01/12/19 17:35 Chloride 106.4 mmol/L (98-107) 01/12/19 17:35 Carbon Dioxide 19 mmol/L (22-30) L 01/12/19 17:35 Anion Gap 20 mmol/L 01/12/19 17:35 BUN 16 mg/dL (9-20) 01/12/19 17:35 Creatinine 1.4 mg/dL (0.8-1.5) 01/12/19 17:35 Estimated GFR > 60 ml/min 01/12/19 17:35 BUN/Creatinine Ratio 11 % 01/12/19 17:35 Glucose 166 mg/dL (75-100) H 01/12/19 17:35 Calcium 8.7 mg/dL (8.4-10.2) 01/12/19 17:35 Magnesium 1.60 mg/dL (1.7-2.3) L 01/12/19 17:35 Total Bilirubin 0.80 mg/dL (0.1-1.2) 01/12/19 17:35 AST 73 units/L (5-40) H 01/12/19 17:35 ALT 54 units/L (7-56) 01/12/19 17:35 Alkaline Phosphatase 98 units/L (35-129) 01/12/19 17:35 Total Creatine Kinase 135 units/L (55-170) 01/12/19 17:35 CK-MB (CK-2) 3.9 ng/mL (0.0-4.0) 01/12/19 17:35 CK-MB (CK-2) Rel Index 2.8 (0-4) 01/12/19 17:35 Troponin T < 0.010 ng/mL (0.00-0.029) 01/12/19 17:35 Total Protein 5.7 g/dL (6.3-8.2) L 01/12/19 17:35 Albumin 3.2 g/dL (3.9-5) L 01/12/19 17:35 Albumin/Globulin Ratio 1.3 % 01/12/19 17:35 Triglycerides 67 mg/dL (2-149) 01/13/19 05:02 Cholesterol 138 mg/dL (50-199) 01/13/19 05:02 LDL Cholesterol Direct 71 mg/dL (50-130) 01/13/19 05:02 HDL Cholesterol 68 mg/dL (40-59) H 01/13/19 05:02 Cholesterol/HDL Ratio 2.02 % 01/13/19 05:02 Active Medications - Current Medications Current Medications: Generic Name Dose Route Start Last Admin Trade Name Freq PRN Reason Stop Dose Admin Acetaminophen 650 mg 01/12/19 19:01 Tylenol PO Q4H PRN Pain, Mild (1-3) Amlodipine Besylate 5 mg 01/13/19 10:00 01/13/19 10:03 Norvasc PO 5 mg DAILY [place] Administration Atorvastatin Calcium 40 mg 01/12/19 22:00 01/12/19 23:00 Lipitor PO 40 mg QHS [place] Administration Bisacodyl 10 mg 01/12/19 19:01 Dulcolax [place] QDAY PRN Constipation Ferrous Sulfate 325 mg 01/12/19 22:00 01/13/19 10:27 Feosol PO 325 mg BID [place] Administration Labetalol HCl 10 mg 01/12/19 17:53 Normodyne IV Q5MIN PRN to maintain SBP < 180 Magnesium Hydroxide 30 ml 01/12/19 19:01 Milk Of Magnesia PO Q4H PRN Constipation Metoclopramide HCl 10 mg 01/12/19 19:01 Reglan PO Q6H PRN Nausea And Vomiting Ondansetron HCl 4 mg 01/12/19 19:01 Zofran IV Q8H PRN Nausea And Vomiting Promethazine HCl 25 mg 01/12/19 19:01 Phenergan [place] Q6H PRN Nausea And Vomiting Sodium Chloride 10 ml 01/12/19 19:01 Sodium Chloride Flush Syringe 10 Ml IV PRN PRN LINE FLUSH
--- NOTE | 2019-01-13 15:33 | Consultation ---
History of Present Illness Consult date: 01/13/19 Requesting physician: YAMILETH KOWALSKI Reason for consult: other (Acute CVA s/p tpA) History of present illness: PULMONARY/CCM CONSULT NOTE (Full dictation # [id number]) Please see dictated notes for full details Past History Past Medical History: anemia, hypertension, hyperlipidemia Past Surgical History: No surgical history, Other (reviewed) Social history: , lives with family. denies: smoking, alcohol abuse, prescription drug abuse Family history: hypertension Medications and Allergies Allergies Allergy/AdvReac Type Severity Reaction Status Date / Time No Known Allergies Allergy Verified 07/06/18 17:34 Home Medications Medication Instructions Recorded Confirmed Last Taken Type Amlodipine Besylate [Norvasc] 5 mg PO DAILY 01/12/19 01/12/19 Unknown History AtorvaSTATin [Lipitor] 20 mg PO DAILY 01/12/19 01/12/19 Unknown History Ferrous Sulfate [Iron 325 MG] 325 mg PO BID 01/12/19 01/12/19 Unknown History Lisinopril [Zestril TAB] 40 mg PO DAILY 01/12/19 01/12/19 Unknown History Active Meds: Active Medications Acetaminophen (Tylenol) 650 mg PO Q4H PRN PRN Reason: Pain, Mild (1-3) Amlodipine Besylate (Norvasc) 5 mg PO DAILY [facility] Last Admin: 01/13/19 10:03 Dose: 5 mg Documented by: Atorvastatin Calcium (Lipitor) 40 mg PO QHS [facility] Last Admin: 01/12/19 23:00 Dose: 40 mg Documented by: Bisacodyl (Dulcolax) 10 mg [place] QDAY PRN PRN Reason: Constipation Ferrous Sulfate (Feosol) 325 mg PO BID [facility] Last Admin: 01/13/19 10:27 Dose: 325 mg Documented by: Labetalol HCl (Normodyne) 10 mg IV Q5MIN PRN PRN Reason: to maintain SBP < 180 Magnesium Hydroxide (Milk Of Magnesia) 30 ml PO Q4H PRN PRN Reason: Constipation Metoclopramide HCl (Reglan) 10 mg PO Q6H PRN PRN Reason: Nausea And Vomiting Ondansetron HCl (Zofran) 4 mg IV Q8H PRN PRN Reason: Nausea And Vomiting Promethazine HCl (Phenergan) 25 mg [place] Q6H PRN PRN Reason: Nausea And Vomiting Sodium Chloride (Sodium Chloride Flush Syringe 10 Ml) 10 ml IV PRN PRN PRN Reason: LINE FLUSH Physical Examination Vital signs: Vital Signs Pulse Resp BP Pulse Ox 63 18 131/72 98 01/12/19 17:37 01/12/19 17:37 01/12/19 17:37 01/12/19 17:37 Results - Laboratory Findings CBC and BMP: 01/12/19 17:35 01/12/19 17:35 PT/INR, D-dimer PT 13.7 Sec. (12.2-14.9) 01/12/19 17:35 INR 0.99 (0.87-1.13) 01/12/19 17:35 Abnormal lab findings: Abnormal Labs 01/12/19 01/12/19 01/12/19 17:35 17:35 17:35 WBC 3.6 L RBC 3.52 L Hgb 10.9 L Hct 32.1 L [place] % (Auto) 12.1 H Lymph # 0.9 L Potassium 3.3 L Carbon Dioxide 19 L Glucose 166 H Magnesium 1.60 L AST 73 H Total Protein 5.7 L Albumin 3.2 L HDL Cholesterol 01/13/19 05:02 WBC RBC Hgb Hct [place] % (Auto) Lymph # Potassium Carbon Dioxide Glucose Magnesium AST Total Protein Albumin HDL Cholesterol 68 H
--- NOTE | 2019-01-13 18:22 | Consultation ---
History of Present Illness Consult date: 01/13/19 Chief complaint: sudden dizziness and confusion History of present illness: This is a 73 YO M who was out working in his yard and was suddenly dizzy and confused. Pt was brought into the ED for evaluation. Evaluated for Alteplase and found to be a candidate so it was given. Pt says he feels back to baseline. MRI Brain shows embolic storke, carotids show bilateral stenosis. Past History Past Medical History: anemia, hypertension, hyperlipidemia Past Surgical History: No surgical history, Other (reviewed) Social history: , lives with family. denies: smoking, alcohol abuse, prescription drug abuse Family history: hypertension Medications and Allergies Allergies Allergy/AdvReac Type Severity Reaction Status Date / Time No Known Allergies Allergy Verified 07/06/18 17:34 Home Medications Medication Instructions Recorded Confirmed Last Taken Type Amlodipine Besylate [Norvasc] 5 mg PO DAILY 01/12/19 01/12/19 Unknown History AtorvaSTATin [Lipitor] 20 mg PO DAILY 01/12/19 01/12/19 Unknown History Ferrous Sulfate [Iron 325 MG] 325 mg PO BID 01/12/19 01/12/19 Unknown History Lisinopril [Zestril TAB] 40 mg PO DAILY 01/12/19 01/12/19 Unknown History Active Meds: Active Medications Acetaminophen (Tylenol) 650 mg PO Q4H PRN PRN Reason: Pain, Mild (1-3) Amlodipine Besylate (Norvasc) 5 mg PO DAILY [facility] Last Admin: 01/13/19 10:03 Dose: 5 mg Documented by: Atorvastatin Calcium (Lipitor) 40 mg PO QHS [facility] Last Admin: 01/12/19 23:00 Dose: 40 mg Documented by: Bisacodyl (Dulcolax) 10 mg [place] QDAY PRN PRN Reason: Constipation Ferrous Sulfate (Feosol) 325 mg PO BID [facility] Last Admin: 01/13/19 10:27 Dose: 325 mg Documented by: Labetalol HCl (Normodyne) 10 mg IV Q5MIN PRN PRN Reason: to maintain SBP < 180 Magnesium Hydroxide (Milk Of Magnesia) 30 ml PO Q4H PRN PRN Reason: Constipation Metoclopramide HCl (Reglan) 10 mg PO Q6H PRN PRN Reason: Nausea And Vomiting Ondansetron HCl (Zofran) 4 mg IV Q8H PRN PRN Reason: Nausea And Vomiting Promethazine HCl (Phenergan) 25 mg [place] Q6H PRN PRN Reason: Nausea And Vomiting Sodium Chloride (Sodium Chloride Flush Syringe 10 Ml) 10 ml IV PRN PRN PRN Reason: LINE FLUSH Review of Systems Neurological: vertigo Physical Examination - Vital Signs Vital Signs: Vital Signs Pulse Resp BP Pulse Ox 63 18 131/72 98 01/12/19 17:37 01/12/19 17:37 01/12/19 17:37 01/12/19 17:37 - Constitutional General appearance: comfortable - EENT EENT: Present: PERRL - Respiratory Respiratory: Present: lungs clear - Cardiovascular Cardiovascular: Present: regular rate Extremities: Present: no peripheral edema bilatateraly - Neurologic Cranial nerve examination: PERRL, EOMI, V1/V2/V3 grossly intact, face symmetric, tongue midline Speech examination: intact Sensorimotor examination: intact Motor examination - right side: 5/5: biceps, triceps, wrist flexion, wrist extension, textile stylist, hip flexors, knee extensors, dorsiflexion, toe extension (EHL), plantarflexion Motor examination - left side: 5/5: biceps, triceps, wrist flexion, wrist extension, textile stylist, hip flexors, knee extensors, dorsiflexion, toe extension (EHL), plantarflexion Detailed sensory examination: intact Reflex and gait examination: intact Reflexes: 1+: ankle, bicep, knee, tricep - Assessment Assessment Interval: 24 hours post onset of symptoms +-20 minutes - Level of Consciousness 1a. Level of Consciousness: alert/keenly responsive - LOC Questions 1b. LOC Questions: answers both correctly - LOC Command 1c. LOC Commands: performs tasks correctly - Best Gaze 2. Best Gaze: normal - Visual 3. Visual: no visual loss - Facial Palsy 4. Facial Palsy: normal symmetrical movement - Motor Arm 5a. Motor Arm Left: no drift 5b. Motor Arm Right: no drift - Motor Leg 6a. Motor Leg Left: no drift 6b. Motor Leg Right: no drift - Limb Ataxia 7. Limb Ataxia: absent - Sensory 8. Sensory: normal - Best Language 9. Best Language: no aphasia - Dysarthria 10. Dysarthria: normal - Extinction and Inattention 11. Extinction/Inattention: no abnormality - Scoring Total Score: 0 Stroke Severity: No Stroke Symptoms Results - Laboratory Findings CBC and BMP: 01/12/19 17:35 01/12/19 17:35 Abnormal Lab Findings: Abnormal Labs 01/12/19 01/12/19 01/12/19 17:35 17:35 17:35 WBC 3.6 L RBC 3.52 L Hgb 10.9 L Hct 32.1 L [place] % (Auto) 12.1 H Lymph # 0.9 L Potassium 3.3 L Carbon Dioxide 19 L Glucose 166 H Magnesium 1.60 L AST 73 H Total Protein 5.7 L Albumin 3.2 L HDL Cholesterol 01/13/19 05:02 WBC RBC Hgb Hct [place] % (Auto) Lymph # Potassium Carbon Dioxide Glucose Magnesium AST Total Protein Albumin HDL Cholesterol 68 H - Diagnostic Findings Additional findings: MR Brain bilateral frontal and right parietal acute infarcts 95% left ICA occlusion echo ok Assessment and Plan This is a 73 YO M with acute stroke, embolic, carotid stenosis Recommend: PT will need a MADDI for embolic source and vascular eval with carotid stenosis aspirin and plavix and statin for now, vte prophylaxis PT/OT/ST a1c and lipid panel BP as per Alteplase protocol Continue care for all medical issues as you are doing
[2019-01-13] MEDS: BENADRYL PO PRN (21:34)
--- NOTE | 2019-01-14 07:28 | Progress Note ---
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 Seen and examined at bedside; 24hour events reviewed; nursing and respiratory care staff consulted; no adverse overnight events reported to me; Denies any chest pain, no shortness of breath, no fevers or chills. No nausea, no vomiting. at the bedside. Wants to know when he can go home. Objective - Exam Narrative Exam: General appearance: Present: no acute distress, thin Atraumatic, normocephalic - EENT Eyes: Present: PERRL ENT: hearing intact, clear oral mucosa - Neck Neck: Present: supple, normal ROM - Respiratory Respiratory effort: normal Respiratory: bilateral: CTA - Cardiovascular Heart Sounds: Present: S1 & S2. Absent: rub, click - Extremities Extremities: pulses symmetrical, No edema Peripheral Pulses: within normal limits - Abdominal General gastrointestinal: Present: soft, non-tender, non-distended, normal bowel sounds Male genitourinary: Present: normal - Integumentary Integumentary: Present: clear, warm, dry - Musculoskeletal Musculoskeletal: gait normal, strength equal bilaterally - Psychiatric Psychiatric: appropriate mood/affect, intact judgment & insight - Neurologic Neurologic: CNII-XII intact, moves all extremities Vital Signs - 12hr 01/13/19 01/13/19 01/13/19 20:00 22:00 23:55 Temperature 98.0 F 97.9 F Pulse Rate 61 63 57 L Respiratory 18 18 Rate Blood Pressure 159/83 Blood Pressure 151/61 [Right] O2 Sat by Pulse 100 100 Oximetry 01/14/19 04:00 Temperature 98.4 F Pulse Rate 52 L Respiratory 18 Rate Blood Pressure Blood Pressure 143/69 [Right] O2 Sat by Pulse 100 Oximetry CBC and BMP: 01/15/19 04:29 01/15/19 04:29 ABG, PT/INR, D-dimer: PT/INR, D-dimer PT 13.7 Sec. (12.2-14.9) 01/12/19 17:35 INR 0.99 (0.87-1.13) 01/12/19 17:35 Abnormal lab findings: Abnormal Labs 01/12/19 01/12/19 01/12/19 17:35 17:35 17:35 WBC 3.6 L RBC 3.52 L Hgb 10.9 L Hct 32.1 L [place] % (Auto) 12.1 H Lymph # 0.9 L Potassium 3.3 L Carbon Dioxide 19 L Glucose 166 H Magnesium 1.60 L AST 73 H Total Protein 5.7 L Albumin 3.2 L HDL Cholesterol 01/13/19 05:02 WBC RBC Hgb Hct [place] % (Auto) Lymph # Potassium Carbon Dioxide Glucose Magnesium AST Total Protein Albumin HDL Cholesterol 68 H Additional Studies: Carotid doppler: IMPRESSION: * 50-79% stenosis at the distal right ICA. * 80-99% stenosis at the proximal left ICA. MR brain: 1. Multifocal acute/subacute non hemorrhagic infarcts of the frontal lobes and right parietal lobe. The pattern is consistent with embolic infarcts. 2. Mild global cortical atrophy. 3. Moderate chronic white matter microangiopathy is. CTA Neck: Critical 95% stenosis in the proximal left internal carotid artery. Satisfactory appearance of the right internal carotid artery.
--- NOTE | 2019-01-14 09:24 | Progress Note ---
Assessment and Plan Assessment and plan: 73 YO Male with HTN, HLD, Anemia presents to ED for evaluation. Pt was in his usual state of health and was doing work in his lawn. Pt went back into his home upon completion of his work around 1630hrs. Pt then experienced a sudden onset of dizziness and is unable to provide further details regarding his dizziness and confusion. Pt and son are at bedside and provide further details. As per family, the patient became momentarily confused and developed left-sided weakness, and facial droop. Emergency Medical Services was notified, and upon arrival the patient was found to have a neurologic deficit. A Code Stroke was called and the patient was transported to [facility]. Pt seen and evaluated in ED and found to have symptoms consistent with CVA. Teleneurology consulted, and patient treated with TPA with improvement in symptoms. Pt initiated on CVA protocol and admitted to ICU. Neurology consulted. Pt denies fever, chills, CP, Palpitations, NVD, Trauma, Falls, productive cough, skin rash, recent ill contacts, prolonged travel/immobility, unilateral leg swelling, calf pain, individual/family history of DVT/PE/Blood clotting disorders. No prior admission for review. All listed medication reconciled at time of exam. PCP: Corinne. Today patient feels back to baseling, imaging studies consistent on MR Brain Carotid doppler: IMPRESSION: * 50-79% stenosis at the distal right ICA. * 80-99% stenosis at the proximal left ICA. MR brain: 1. Multifocal acute/subacute nonhemorrhagic infarcts of the frontal lobes and right parietal lobe. The pattern is consistent with embolic infarcts. 2. Mild global cortical atrophy. 3. Moderate chronic white matter microangiopathy is. CTA Neck: Critical 95% stenosis in the proximal left internal carotid artery. Satisfactory appearance of the right internal carotid artery. 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 Spouse at bedside Hospitalist Physical - Physical exam Narrative exam: General appearance: Present: no acute distress. - EENT Eyes: Present: PERRL ENT: hearing intact, clear oral mucosa - Neck Neck: Present: supple, normal ROM - Respiratory Respiratory effort: normal Respiratory: bilateral: CTA - Cardiovascular Heart Sounds: Present: S1 & S2. Absent: rub, click - Extremities Extremities: pulses symmetrical, No edema Peripheral Pulses: within normal limits - Abdominal General gastrointestinal: Present: soft, non-tender, non-distended, normal bowel sounds Male genitourinary: Present: normal - Integumentary Integumentary: Present: clear, warm, dry - Musculoskeletal Musculoskeletal: gait normal, strength equal bilaterally - Psychiatric Psychiatric: appropriate mood/affect, intact judgment & insight - Neurologic Neurologic: CNII-XII intact, moves all extremities - Constitutional Vitals: Temp Pulse Resp BP Pulse Ox 98.3 F 49 L 18 168/83 100 01/14/19 08:36 01/14/19 08:36 01/14/19 08:36 01/14/19 08:36 01/14/19 08:36 General appearance: Present: no acute distress, mild distress Results - Labs CBC & Chem 7: 01/15/19 04:29 01/15/19 04:29 Labs: Laboratory Last Values WBC 3.6 K/mm3 (4.5-11.0) L 01/12/19 17:35 RBC 3.52 M/mm3 (3.65-5.03) L 01/12/19 17:35 Hgb 10.9 gm/dl (11.8-15.2) L 01/12/19 17:35 Hct 32.1 % (35.5-45.6) L 01/12/19 17:35 MCV 91 fl (84-94) 01/12/19 17:35 MCH 31 pg (28-32) 01/12/19 17:35 MCHC 34 % (32-34) 01/12/19 17:35 RDW 14.1 % (13.2-15.2) 01/12/19 17:35 Plt Count 189 K/mm3 (140-440) 01/12/19 17:35 Lymph % (Auto) 24.1 % (13.4-35.0) 01/12/19 17:35 [place] % (Auto) 12.1 % (0.0-7.3) H 01/12/19 17:35 Eos % (Auto) 1.7 % (0.0-4.3) 01/12/19 17:35 Baso % (Auto) 0.7 % (0.0-1.8) 01/12/19 17:35 Lymph # 0.9 K/mm3 (1.2-5.4) L 01/12/19 17:35 [place] # 0.4 K/mm3 (0.0-0.8) 01/12/19 17:35 Eos # 0.1 K/mm3 (0.0-0.4) 01/12/19 17:35 Baso # 0.0 K/mm3 (0.0-0.1) 01/12/19 17:35 Seg Neutrophils % 61.4 % (40.0-70.0) 01/12/19 17:35 Seg Neutrophils # 2.2 K/mm3 (1.8-7.7) 01/12/19 17:35 PT 13.7 Sec. (12.2-14.9) 01/12/19 17:35 INR 0.99 (0.87-1.13) 01/12/19 17:35 APTT 28.0 Sec. (24.2-36.6) 01/12/19 17:35 Thrombin Time 16.5 Sec. (15.1-19.6) 01/12/19 17:35 Sodium 142 mmol/L (137-145) 01/12/19 17:35 Potassium 3.3 mmol/L (3.6-5.0) L 01/12/19 17:35 Chloride 106.4 mmol/L (98-107) 01/12/19 17:35 Carbon Dioxide 19 mmol/L (22-30) L 01/12/19 17:35 Anion Gap 20 mmol/L 01/12/19 17:35 BUN 16 mg/dL (9-20) 01/12/19 17:35 Creatinine 1.4 mg/dL (0.8-1.5) 01/12/19 17:35 Estimated GFR > 60 ml/min 01/12/19 17:35 BUN/Creatinine Ratio 11 % 01/12/19 17:35 Glucose 166 mg/dL (75-100) H 01/12/19 17:35 Calcium 8.7 mg/dL (8.4-10.2) 01/12/19 17:35 Magnesium 1.50 mg/dL (1.7-2.3) L 01/14/19 08:00 Total Bilirubin 0.80 mg/dL (0.1-1.2) 01/12/19 17:35 AST 73 units/L (5-40) H 01/12/19 17:35 ALT 54 units/L (7-56) 01/12/19 17:35 Alkaline Phosphatase 98 units/L (35-129) 01/12/19 17:35 Total Creatine Kinase 135 units/L (55-170) 01/12/19 17:35 CK-MB (CK-2) 3.9 ng/mL (0.0-4.0) 01/12/19 17:35 CK-MB (CK-2) Rel Index 2.8 (0-4) 01/12/19 17:35 Troponin T < 0.010 ng/mL (0.00-0.029) 01/12/19 17:35 Total Protein 5.7 g/dL (6.3-8.2) L 01/12/19 17:35 Albumin 3.2 g/dL (3.9-5) L 01/12/19 17:35 Albumin/Globulin Ratio 1.3 % 01/12/19 17:35 Triglycerides 67 mg/dL (2-149) 01/13/19 05:02 Cholesterol 138 mg/dL (50-199) 01/13/19 05:02 LDL Cholesterol Direct 71 mg/dL (50-130) 01/13/19 05:02 HDL Cholesterol 68 mg/dL (40-59) H 01/13/19 05:02 Cholesterol/HDL Ratio 2.02 % 01/13/19 05:02 Active Medications - Current Medications Current Medications: Generic Name Dose Route Start Last Admin Trade Name Freq PRN Reason Stop Dose Admin Acetaminophen 650 mg 01/12/19 19:01 Tylenol PO Q4H PRN Pain, Mild (1-3) Amlodipine Besylate 5 mg 01/13/19 10:00 01/13/19 10:03 Norvasc PO 5 mg DAILY [place] Administration Atorvastatin Calcium 40 mg 01/12/19 22:00 01/13/19 21:33 Lipitor PO 40 mg QHS [place] Administration Bisacodyl 10 mg 01/12/19 19:01 Dulcolax RI QDAY PRN Constipation Diphenhydramine HCl 25 mg 01/13/19 20:35 01/13/19 21:34 Benadryl PO 25 mg QHS PRN Administration Sleep Ferrous Sulfate 325 mg 01/12/19 22:00 01/13/19 21:33 Feosol PO 325 mg BID [place]ON Administration Labetalol HCl 10 mg 01/12/19 17:53 Normodyne IV Q5MIN PRN to maintain SBP < 180 Magnesium Hydroxide 30 ml 01/12/19 19:01 Milk Of Magnesia PO Q4H PRN Constipation Metoclopramide HCl 10 mg 01/12/19 19:01 Reglan PO Q6H PRN Nausea And Vomiting Ondansetron HCl 4 mg 01/12/19 19:01 Zofran IV Q8H PRN Nausea And Vomiting Promethazine HCl 25 mg 01/12/19 19:01 Phenergan RI Q6H PRN Nausea And Vomiting Sodium Chloride 10 ml 01/12/19 19:01 Sodium Chloride Flush Syringe 10 Ml IV PRN PRN LINE FLUSH
[2019-01-14] MEDS: NORVASC PO SCH (10:10)
[2019-01-14] MEDS: FEOSOL PO SCH ×2 (10:10→21:24)
--- NOTE | 2019-01-14 14:57 | Consultation ---
PULMONARY CRITICAL CARE CONSULTATION CONSULTING PHYSICIAN: Dr. Santillan, Emergency Room physician. REASON FOR CONSULTATION: Acute CVA, status post TPA. CHIEF COMPLAINT AND HISTORY OF PRESENT ILLNESS: The patient is a 73-year-old -Faroese male, very pleasant gentleman who really did not have much of a past medical history, presented to the Emergency Room as part of a code stroke. He had been in his usual state of health until about an hour prior to presentation, he developed a sudden left-sided weakness and facial droop. His Accu-Chek was normal in the field. He was alert, oriented with a persistent left-sided weakness and droop. In the ER, he reported no contraindications to TPA and noncontrast CT scan of the brain was negative for acute disease. The family was educated and also he had a Teleneuroradiology consult and ultimately a decision was made to do TPA. After the TPA infusion, his symptoms apparently improved. A CT angiogram of the head and neck was done to see if there was any large vessel disease and I believe none was found. Admission was asked for to the ICU post-TPA administration. When I stopped by to see him, he was still in the Emergency Room, he was doing much better, sitting on side of the bed, talking with his . Denied fevers or chills. Denied any pain. Denied any bleeding. Denied any palpitations. Denied any prior similar symptoms. He does have a remote tobacco smoking history according to his . Really, this is as much of the history of presentation as I have. PAST MEDICAL HISTORY: History of anemia, history of hypertension, and history of hyperlipidemia. PAST SURGICAL HISTORY: Denied. MEDICATIONS: The patient was on at the time I stopped by to see him were reviewed. Pertinent medications included the following: Tylenol 650 mg p.o. q.4 hours p.r.n. mild pain or fevers, Norvasc 5 mg p.o. daily, Lipitor 40 mg p.o. at bedtime p.r.n., Dulcolax suppositories, iron tablets 325 mg p.o. b.i.d. that is ferrous sulfate, labetalol 10 mg IV p.r.n. for systolics greater than 180 mmHg, Reglan 10 mg p.o. q.6 hours p.r.n. nausea and vomiting, Zofran 4 mg IV q.8 hours p.r.n. nausea and vomiting. ALLERGIES: No known drug allergies. DIET: Thin gentleman; however, family denies significant weight loss or gain in the preceding few weeks to months. FAMILY AND SOCIAL HISTORY: He is , lives with the family, he has a remote tobacco smoking history. Denies alcohol, illicit drug use or abuse. Family history is positive for hypertension. REVIEW OF SYSTEMS: No overt loss of consciousness. No new onset seizures. He had the new onset left hemiparesis. Denied gross hematochezia or melena. Denied gross hematuria or dysuria. No heat or cold intolerance. No polydipsia, no polyuria. Denies any significant change in his memory or sleep patterns. Denies any new rash, any swelling, any mumps on his body. He denies any neck stiffness, neck pain. Complete 13-system review of system was obtained. Pertinent positives and/or negatives as in body of history above, otherwise they are noncontributory. PHYSICAL EXAMINATION: VITAL SIGNS: At presentation in the Emergency Room, the first temperature I see is 98.3, he was afebrile with a pulse of 78, respiratory rate of 16, blood pressure 130/82. When I saw, his blood pressure was 131/72, O2 sats 98%, inspired oxygen concentration at the time was not recorded. When I stopped by to see him, O2 sats were 98% on room air. GENERAL: He is an elderly looking thin -Faroese male. Normocephalic, atraumatic, talking to me in full sentences without significant respiratory distress. HEAD, EYES, EARS, NOSE AND THROAT: He is anicteric. No conjunctival erythema. Oropharynx was moist, is a Mallampati #2 oropharynx. No gross jugular venous distention, no thyromegaly. Grossly, no palpable lymph nodes in the supraclavicular or submandibular lymph node chains. LUNGS: Auscultation of both lung webb was unremarkable. Lungs are clear bilaterally with good bilateral air movement. HEART: Heart sounds 1 and 2 are heard. They were regular in rate and rhythm at the time of my evaluation, without rubs or murmurs. ABDOMEN: Soft, flat. Bowel sounds are positive, nontender. No palpable hepatosplenomegaly. EXTREMITIES: Without overt digital clubbing or cyanosis and no pedal edema. Pedal pulses are palpable and strong bilaterally. NEUROLOGIC: Pupils were equal, round, 4 mm, reactive to light. Extraocular muscle movements are intact. The tongue protruded centrally. He moved all 4 extremities spontaneously, power was equal in all extremities when I measured. No fasciculations. No obvious spasticity. SKIN: The skin was of normal turgor without overt cellulitis or rashes. LABORATORY DATA: From my review, white cell count 3600, hemoglobin 10.9, hematocrit 32.1, platelet count was 189. INR was 0.99. Serum sodium 142, potassium 3.3, chloride 106, bicarbonate 19, BUN 16, creatinine 1.4, glucose 166. Magnesium was low at 1.6. Liver function test, AST was up at 73, otherwise essentially within normal limits. Albumin was low at 3.2. Cardiac enzymes were within normal limits. LDL cholesterol was 71, HDL cholesterol was 68. No microbiological samples. CTAs were done. The CT of the brain showed a normal study, mild atrophy consistent with his age. The CT angiogram of the head narrowed distal left internal carotid artery, which is likely secondary to diminished perfusion pressure, otherwise normal study. ASSESSMENT: 1. Acute cerebrovascular accident, status post TPA with good result. 2. Hypertension, not well controlled. 3. History of anemia. 4. History of hyperlipidemia. PLAN: We will observe him on the post-TPA protocol. He still has a few hours to go in his initial 24-hour examination. I have stressed the importance of compliance with his medications, in particular, he is going to be placed continued, possibly I should say on antilipid therapy. I have told him he needs to keep taking that and blood pressure should be well controlled. Neurology consult has been placed and we should get an official Neurology consult. We will continue to observe him in the ER until we have a room available in the Intensive Care Unit. He will be placed on GI prophylaxis, especially post-TPA. Flu and pneumonia vaccination will be addressed per protocol. Thank you very much for the consult. We will follow along. We will make further recommendations as picture progresses/becomes clearer. At this time, I have spent about 35 minutes of critical care time, he is at risk for deterioration including the risk of from degeneration of the neurologic system. Again, 30-35 minutes of critical care time without overlap excluding any procedural time that may be necessary. I should mention that we will continue p.r.n. blood control, keep systolics below 180 in an acute phase with p.r.n. labetalol and/or hydralazine. [facility]# [id number] NAOMY/EMIL
--- NOTE | 2019-01-14 15:18 | Cat Scan Report ---
PROCEDURE: CT HEAD/BRAIN WO CON TECHNIQUE: Axial images obtained head without intravenous contrast HISTORY: post TPA COMPARISONS: Head CT January 12, 2019. MRI January 13, 2019 FINDINGS: Small right frontal area loss of beatty-white interface compatible with evolving infarct. This was not present prior head CT. No hemorrhagic transformation. This area corresponds to an area of gyral edema and restricted diffusion MRI January 13, 2019 No extra-axial fluid collection. No midline shift. No cisternal effacement. Mild generalized prominence of ventricles and subarachnoid spaces compatible with volume loss Middle cerebral arteries demonstrate no suspect hyperdensity Paranasal sinuses no air fluid level Calvarium no acute defect IMPRESSION: Small area of hypoattenuation right frontal lobe compatible with evolving infarct distribution right middle cerebral artery.. No hemorrhagic transformation.. This area corresponds to area of restricted diffusion prior MRI. This document is electronically signed by Jamie Glover MD., Jan 14 2019 03:16:45 PM ET
[2019-01-14] MEDS: BABY ASPIRIN PO SCH (16:25)
[2019-01-15 05:53] LABS: Hematocrit 30.3 % (35.5-45.6); Hemoglobin 10.3 gm/dl (11.8-15.2); Mean Corpuscular HGB Conc 34 % (32-34); Mean Corpuscular Volume 92 fl (84-94); Platelet Count 150 K/mm3 (140-440); Red Blood Count 3.31 M/mm3 (3.65-5.03); Red Cell Distribution Width 13.7 % (13.2-15.2)
[2019-01-15 06:12] LABS: BUN/Creatinine Ratio 10; Blood Urea Nitrogen 9 mg/dL (9-20); Calcium 8.7 mg/dL (8.4-10.2); Hemolysis Index 12
[2019-01-15] MEDS: FEOSOL PO SCH ×2 (10:33→21:50)
[2019-01-15] MEDS: NORVASC PO SCH (10:33)
[2019-01-15] MEDS: BABY ASPIRIN PO SCH (10:33)
--- NOTE | 2019-01-15 11:29 | Consultation ---
History of Present Illness - Reason for Consult Consult date: 01/15/19 Bilateral Carotid Artery Stenosis Requesting physician: SELENA VERNON - History of Present Illness The patient is a 73-year-old male who presented to the emergency department with signs and symptoms of a right hemisphere CVA. He had significant difficulty moving his left side. He was given TPA and have resolution of his symptoms. His workup included a CTA of his neck as well as a carotid duplex which revealed approximately 50% stenosis of his right internal carotid artery and what appears to be 99% stenosis of his left internal carotid artery stenosis by CTA. He denies any previous history of stroke involving either side. He has never had episodes of slurred speech or amaurosis fugax of the left eye. He states that he was on aspirin but denies been on a statin at the time of his stroke. He is currently being worked up for an embolic source of his right hemispheric CVA. At this time he has no other complaints. Past History Past Medical History: anemia, hypertension, hyperlipidemia Past Surgical History: No surgical history, Other (reviewed) Social history: , lives with family. denies: smoking, alcohol abuse, prescription drug abuse Family history: hypertension Medications and Allergies Allergies Allergy/AdvReac Type Severity Reaction Status Date / Time No Known Allergies Allergy Verified 07/06/18 17:34 Home Medications Medication Instructions Recorded Confirmed Last Taken Type Amlodipine Besylate [Norvasc] 5 mg PO DAILY 01/12/19 01/12/19 Unknown History AtorvaSTATin [Lipitor] 20 mg PO DAILY 01/12/19 01/12/19 Unknown History Ferrous Sulfate [Iron 325 MG] 325 mg PO BID 01/12/19 01/12/19 Unknown History Lisinopril [Zestril TAB] 40 mg PO DAILY 01/12/19 01/12/19 Unknown History Active Meds: Active Medications Acetaminophen (Tylenol) 650 mg PO Q4H PRN PRN Reason: Pain, Mild (1-3) Amlodipine Besylate (Norvasc) 5 mg PO DAILY [facility] Last Admin: 01/15/19 10:33 Dose: 5 mg Documented by: Aspirin (Baby Aspirin) 81 mg PO QDAY [facility] Last Admin: 01/15/19 10:33 Dose: 81 mg Documented by: Atorvastatin Calcium (Lipitor) 40 mg PO QHS [facility] Last Admin: 01/14/19 21:24 Dose: 40 mg Documented by: Bisacodyl (Dulcolax) 10 mg MS QDAY PRN PRN Reason: Constipation Diphenhydramine HCl (Benadryl) 25 mg PO QHS PRN PRN Reason: Sleep Last Admin: 01/13/19 21:34 Dose: 25 mg Documented by: Ferrous Sulfate (Feosol) 325 mg PO BID [place] Last Admin: 01/15/19 10:33 Dose: 325 mg Documented by: Labetalol HCl (Normodyne) 10 mg IV Q5MIN PRN PRN Reason: to maintain SBP < 180 Magnesium Hydroxide (Milk Of Magnesia) 30 ml PO Q4H PRN PRN Reason: Constipation Metoclopramide HCl (Reglan) 10 mg PO Q6H PRN PRN Reason: Nausea And Vomiting Ondansetron HCl (Zofran) 4 mg IV Q8H PRN PRN Reason: Nausea And Vomiting Promethazine HCl (Phenergan) 25 mg MS Q6H PRN PRN Reason: Nausea And Vomiting Sodium Chloride (Sodium Chloride Flush Syringe 10 Ml) 10 ml IV PRN PRN PRN Reason: LINE FLUSH Last Admin: 01/14/19 21:24 Dose: 10 ml Documented by: Review of Systems All systems: negative Exam - Constitutional Vitals: Temp Pulse Resp BP Pulse Ox 98.1 F 51 L 16 154/77 100 01/15/19 08:24 01/15/19 10:33 01/15/19 08:24 01/15/19 10:33 01/15/19 08:24 General appearance: Present: no acute distress - EENT Eyes: Present: PERRL - Neck Neck: Present: supple, carotid bruits (left carotid artery) - Respiratory Respiratory effort: normal - Cardiovascular Rhythm: regular - Extremities Extremities: no ischemia, pulses intact, normal temperature - Abdominal General gastrointestinal: Present: soft Male genitourinary: Present: deferred - Rectal Rectal Exam: deferred - Integumentary Integumentary: Present: clear - Musculoskeletal Musculoskeletal: strength equal bilaterally - Psychiatric Psychiatric: appropriate mood/affect, intact judgment & insight, memory intact, cooperative - Neurologic Neurologic: no focal deficits Results - Labs CBC & Chem 7: 01/15/19 04:29 01/15/19 04:29 Labs: Abnormal lab results 05/05/19 05/05/19 Range/Units 04:29 04:29 WBC 3.0 L (4.5-11.0) K/mm3 RBC 3.31 L (3.65-5.03) M/mm3 Hgb 10.3 L (11.8-15.2) gm/dl Hct 30.3 L (35.5-45.6) % Potassium 3.4 L (3.6-5.0) mmol/L Chloride 109.1 H (98-107) mmol/L Carbon Dioxide 21 L (22-30) mmol/L - Imaging and Cardiology CT scan - chest: other (CTA of the neck images were reviewed) CT Scan - head: report reviewed, image reviewed MRI - head: report reviewed Venous US: other (carotid duplex images were reviewed) Assessment and Plan The patient is a 73-year-old male who presented with a right hemispheric CVA received TPA with resolution of his symptoms. He has minimal plaque and stenosis of his right internal carotid artery and it is unlikely that his ca rotid artery was the cause of his stroke. It is more likely that this was from an embolic source and a MADDI is the appropriate next step. He has a 99% stenosis of his left internal carotid artery and as it increased risk of an embolic event despite being asymptomatic. He will require full cardiac workup including finding the potential source of his previous embolic event prior to proceeding with a left carotid endarterectomy. The timing of his operation will depend on these findings. For now would continue medical management and recommend adding Plavix for antiplatelet therapy. After a full cardiac evaluation he can be done as either an inpatient or outpatient depending on when this is completed. I have discussed this with the patient as well as his and they have expressed understanding and agree with the plan.
--- NOTE | 2019-01-15 13:01 | Progress Note ---
Assessment and Plan Assessment and plan: 73 YO Male with HTN, HLD, Anemia presents to ED for evaluation. Pt was in his usual state of health and was doing work in his lawn. Pt went back into his home upon completion of his work around 1630hrs. Pt then experienced a sudden onset of dizziness and is unable to provide further details regarding his dizziness and confusion. Pt and son are at bedside and provide further details. As per family, the patient became momentarily confused and developed left-sided weakness, and facial droop. Emergency Medical Services was notified, and upon arrival the patient was found to have a neurologic deficit. A Code Stroke was called and the patient was transported to [facility]. Pt seen and evaluated in ED and found to have symptoms consistent with CVA. Teleneurology consulted, and patient treated with TPA with improvement in symptoms. Pt initiated on CVA protocol and admitted to ICU. Neurology consulted. Pt denies fever, chills, CP, Palpitations, NVD, Trauma, Falls, productive cough, skin rash, recent ill contacts, prolonged travel/immobility, unilateral leg swelling, calf pain, individual/family history of DVT/PE/Blood clotting disorders. No prior admission for review. All listed medication reconciled at time of exam. PCP: Corinne. Today patient feels back to [facility], imaging studies consistent on MR Brain Carotid doppler: IMPRESSION: * 50-79% stenosis at the distal right ICA. * 80-99% stenosis at the proximal left ICA. MR brain: 1. Multifocal acute/subacute nonhemorrhagic infarcts of the frontal lobes and right parietal lobe. The pattern is consistent with embolic infarcts. 2. Mild global cortical atrophy. 3. Moderate chronic white matter microangiopathy is. CTA Neck: Critical 95% stenosis in the proximal left internal carotid artery. Satisfactory appearance of the right internal carotid artery. 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 FURTHER RECOMMENDATION FOLLOWING MADDI Continue Statin MADDI per Neurology recommendation AIC pending Rehab assessment, PT/OT/ST Keep npo for maddi in am Discussed with Vascular, plans for outpatient surgery following MADDI findings. Monitor H/H DVT/GI PROPHY ANTICIPATE DISCHARGE IF NO ALARMING FINDING ON MADDI History Interval history: Patient seen and examined at this time, resting comfortable. no new complaints Hospitalist Physical - Physical exam Narrative exam: General appearance: Present: no acute distress. - EENT Eyes: Present: PERRL ENT: hearing intact, clear oral mucosa - Neck Neck: Present: supple, normal ROM - Respiratory Respiratory effort: normal Respiratory: bilateral: CTA - Cardiovascular Heart Sounds: Present: S1 & S2. Absent: rub, click - Extremities Extremities: pulses symmetrical, No edema Peripheral Pulses: within normal limits - Abdominal General gastrointestinal: Present: soft, non-tender, non-distended, normal bowel sounds Male genitourinary: Present: normal - Integumentary Integumentary: Present: clear, warm, dry - Musculoskeletal Musculoskeletal: gait normal, strength equal bilaterally - Psychiatric Psychiatric: appropriate mood/affect, intact judgment & insight - Neurologic Neurologic: CNII-XII intact, moves all extremities - Constitutional Vitals: Temp Pulse Resp BP Pulse Ox 98.1 F 51 L 16 154/77 100 01/15/19 08:24 01/15/19 10:33 01/15/19 08:24 01/15/19 10:33 01/15/19 08:24 General appearance: Present: no acute distress, mild distress Results - Labs CBC & Chem 7: 01/15/19 04:29 01/15/19 04:29 Labs: Laboratory Last Values WBC 3.0 K/mm3 (4.5-11.0) L 01/15/19 04:29 RBC 3.31 M/mm3 (3.65-5.03) L 01/15/19 04:29 Hgb 10.3 gm/dl (11.8-15.2) L 01/15/19 04:29 Hct 30.3 % (35.5-45.6) L 01/15/19 04:29 MCV 92 fl (84-94) 01/15/19 04:29 MCH 31 pg (28-32) 01/15/19 04:29 MCHC 34 % (32-34) 01/15/19 04:29 RDW 13.7 % (13.2-15.2) 01/15/19 04:29 Plt Count 150 K/mm3 (140-440) 01/15/19 04:29 Lymph % (Auto) 24.1 % (13.4-35.0) 01/12/19 17:35 [place] % (Auto) 12.1 % (0.0-7.3) H 01/12/19 17:35 Eos % (Auto) 1.7 % (0.0-4.3) 01/12/19 17:35 Baso % (Auto) 0.7 % (0.0-1.8) 01/12/19 17:35 Lymph # 0.9 K/mm3 (1.2-5.4) L 01/12/19 17:35 [place] # 0.4 K/mm3 (0.0-0.8) 01/12/19 17:35 Eos # 0.1 K/mm3 (0.0-0.4) 01/12/19 17:35 Baso # 0.0 K/mm3 (0.0-0.1) 01/12/19 17:35 Seg Neutrophils % 61.4 % (40.0-70.0) 01/12/19 17:35 Seg Neutrophils # 2.2 K/mm3 (1.8-7.7) 01/12/19 17:35 PT 13.7 Sec. (12.2-14.9) 01/12/19 17:35 INR 0.99 (0.87-1.13) 01/12/19 17:35 APTT 28.0 Sec. (24.2-36.6) 01/12/19 17:35 Thrombin Time 16.5 Sec. (15.1-19.6) 01/12/19 17:35 Sodium 142 mmol/L (137-145) 01/15/19 04:29 Potassium 3.4 mmol/L (3.6-5.0) L 01/15/19 04:29 Chloride 109.1 mmol/L (98-107) H 01/15/19 04:29 Carbon Dioxide 21 mmol/L (22-30) L 01/15/19 04:29 Anion Gap 15 mmol/L 01/15/19 04:29 BUN 9 mg/dL (9-20) 01/15/19 04:29 Creatinine 0.9 mg/dL (0.8-1.5) 01/15/19 04:29 Estimated GFR > 60 ml/min 01/15/19 04:29 BUN/Creatinine Ratio 10 % 01/15/19 04:29 Glucose 92 mg/dL (75-100) 01/15/19 04:29 Hemoglobin A1c 6.2 % (4-6) H 01/14/19 09:18 Calcium 8.7 mg/dL (8.4-10.2) 01/15/19 04:29 Magnesium 1.50 mg/dL (1.7-2.3) L 01/14/19 08:00 Total Bilirubin 0.80 mg/dL (0.1-1.2) 01/12/19 17:35 AST 73 units/L (5-40) H 01/12/19 17:35 ALT 54 units/L (7-56) 01/12/19 17:35 Alkaline Phosphatase 98 units/L (35-129) 01/12/19 17:35 Total Creatine Kinase 135 units/L (55-170) 01/12/19 17:35 CK-MB (CK-2) 3.9 ng/mL (0.0-4.0) 01/12/19 17:35 CK-MB (CK-2) Rel Index 2.8 (0-4) 01/12/19 17:35 Troponin T < 0.010 ng/mL (0.00-0.029) 01/12/19 17:35 Total Protein 5.7 g/dL (6.3-8.2) L 01/12/19 17:35 Albumin 3.2 g/dL (3.9-5) L 01/12/19 17:35 Albumin/Globulin Ratio 1.3 % 01/12/19 17:35 Triglycerides 67 mg/dL (2-149) 01/13/19 05:02 Cholesterol 138 mg/dL (50-199) 01/13/19 05:02 LDL Cholesterol Direct 71 mg/dL (50-130) 01/13/19 05:02 HDL Cholesterol 68 mg/dL (40-59) H 01/13/19 05:02 Cholesterol/HDL Ratio 2.02 % 01/13/19 05:02 Active Medications - Current Medications Current Medications: Generic Name Dose Route Start Last Admin Trade Name Freq PRN Reason Stop Dose Admin Acetaminophen 650 mg 01/12/19 19:01 Tylenol PO Q4H PRN Pain, Mild (1-3) Amlodipine Besylate 5 mg 01/13/19 10:00 01/15/19 10:33 Norvasc PO 5 mg DAILY NAPOLEON Administration Aspirin 81 mg 01/14/19 17:00 01/15/19 10:33 Baby Aspirin PO 81 mg QDAY NAPOLEON Administration Atorvastatin Calcium 40 mg 01/12/19 22:00 01/14/19 21:24 Lipitor PO 40 mg QHS NAPOLEON Administration Bisacodyl 10 mg 01/12/19 19:01 Dulcolax [place] QDAY PRN Constipation Clopidogrel Bisulfate 75 mg 01/16/19 10:00 Plavix PO QDAY NAPOLEON Diphenhydramine HCl 25 mg 01/13/19 20:35 01/13/19 21:34 Benadryl PO 25 mg QHS PRN Administration Sleep Ferrous Sulfate 325 mg 01/12/19 22:00 01/15/19 10:33 Feosol PO 325 mg BID NAPOLEON Administration Labetalol HCl 10 mg 01/12/19 17:53 Normodyne IV Q5MIN PRN to maintain SBP < 180 Magnesium Hydroxide 30 ml 01/12/19 19:01 Milk Of Magnesia PO Q4H PRN Constipation Metoclopramide HCl 10 mg 01/12/19 19:01 Reglan PO Q6H PRN Nausea And Vomiting Ondansetron HCl 4 mg 01/12/19 19:01 Zofran IV Q8H PRN Nausea And Vomiting Promethazine HCl 25 mg 01/12/19 19:01 Phenergan [place] Q6H PRN Nausea And Vomiting Sodium Chloride 10 ml 01/12/19 19:01 01/14/19 21:24 Sodium Chloride Flush Syringe 10 Ml IV 10 ml PRN PRN Administration LINE FLUSH
[2019-01-15] MEDS ORDERED: MAGNESIUM SULFATE 1 GM in NACL 0.9% 50 ML IV ONE (14:00)
--- NOTE | 2019-01-15 15:17 | Progress Note ---
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 Seen and examined at bedside; 24hour events reviewed; nursing and respiratory care staff consulted; no adverse overnight events reported to me; Denies any chest pain, no shortness of breath, no fevers or chills. No nausea, no vomiting. at the bedside. Wants to know when he can go home. Objective Vital Signs - 12hr 01/15/19 01/15/19 01/15/19 04:27 08:24 10:00 Temperature 98.1 F 98.1 F Pulse Rate 50 L 51 L 49 L Respiratory 18 16 Rate Blood Pressure 159/80 154/77 O2 Sat by Pulse 100 100 Oximetry 01/15/19 01/15/19 01/15/19 10:33 11:37 11:44 Temperature 97.7 F 97.7 F Pulse Rate 51 L 71 105 H Respiratory 16 16 Rate Blood Pressure 154/77 132/108 106/52 O2 Sat by Pulse 100 100 Oximetry CBC and BMP: 01/15/19 04:29 01/15/19 04:29 ABG, PT/INR, D-dimer: PT/INR, D-dimer PT 13.7 Sec. (12.2-14.9) 01/12/19 17:35 INR 0.99 (0.87-1.13) 01/12/19 17:35 Abnormal lab findings: Abnormal Labs 01/12/19 01/12/19 01/12/19 17:35 17:35 17:35 WBC 3.6 L RBC 3.52 L Hgb 10.9 L Hct 32.1 L [place] % (Auto) 12.1 H Lymph # 0.9 L Potassium 3.3 L Chloride Carbon Dioxide 19 L Glucose 166 H Hemoglobin A1c Magnesium 1.60 L AST 73 H Total Protein 5.7 L Albumin 3.2 L HDL Cholesterol 01/13/19 01/14/19 01/14/19 05:02 08:00 09:18 WBC RBC Hgb Hct [place] % (Auto) Lymph # Potassium Chloride Carbon Dioxide Glucose Hemoglobin A1c 6.2 H Magnesium 1.50 L AST Total Protein Albumin HDL Cholesterol 68 H 01/15/19 01/15/19 04:29 04:29 WBC 3.0 L RBC 3.31 L Hgb 10.3 L Hct 30.3 L [place] % (Auto) Lymph # Potassium 3.4 L Chloride 109.1 H Carbon Dioxide 21 L Glucose Hemoglobin A1c Magnesium AST Total Protein Albumin HDL Cholesterol
[2019-01-16 04:23] LABS: Hematocrit 29.2 % (35.5-45.6); Hemoglobin 9.9 gm/dl (11.8-15.2); Mean Corpuscular HGB Conc 34 % (32-34); Mean Corpuscular Volume 92 fl (84-94); Platelet Count 139 K/mm3 (140-440); Red Blood Count 3.16 M/mm3 (3.65-5.03); Red Cell Distribution Width 14.3 % (13.2-15.2)
[2019-01-16 07:21] LABS: BUN/Creatinine Ratio 10; Blood Urea Nitrogen 8 mg/dL (9-20); Calcium 8.2 mg/dL (8.4-10.2); Hemolysis Index 1
[2019-01-16] MEDS: PLAVIX PO SCH (11:30)
[2019-01-16] MEDS: FEOSOL PO SCH ×2 (11:30→21:58)
[2019-01-16] MEDS: NORVASC PO SCH (11:30)
[2019-01-16] MEDS: BABY ASPIRIN PO SCH (11:30)
[2019-01-16] MEDS ORDERED: MAGNESIUM SULFATE 2GM/50ML 2 GM/50 ML BAG IV ONE (13:00)
--- NOTE | 2019-01-16 14:35 | Progress Note ---
Assessment and Plan Assessment and plan: 73 YO Male with HTN, HLD, Anemia presents to ED for evaluation. Pt was in his usual state of health and was doing work in his lawn. Pt went back into his home upon completion of his work around 1630hrs. Pt then experienced a sudden onset of dizziness and is unable to provide further details regarding his dizziness and confusion. Pt and son are at bedside and provide further details. As per family, the patient became momentarily confused and developed left-sided weakness, and facial droop. Emergency Medical Services was notified, and upon arrival the patient was found to have a neurologic deficit. A Code Stroke was called and the patient was transported to [facility]. Pt seen and evaluated in ED and found to have symptoms consistent with CVA. Teleneurology consulted, and patient treated with TPA with improvement in symptoms. Pt initiated on CVA protocol and admitted to ICU. Neurology consulted. Pt denies fever, chills, CP, Palpitations, NVD, Trauma, Falls, productive cough, skin rash, recent ill contacts, prolonged travel/immobility, unilateral leg swelling, calf pain, individual/family history of DVT/PE/Blood clotting disorders. No prior admission for review. All listed medication reconciled at time of exam. PCP: Corinne. Today patient feels back to the medical center, imaging studies consistent on MR Brain Carotid doppler: IMPRESSION: * 50-79% stenosis at the distal right ICA. * 80-99% stenosis at the proximal left ICA. MR brain: 1. Multifocal acute/subacute nonhemorrhagic infarcts of the frontal lobes and right parietal lobe. The pattern is consistent with embolic infarcts. 2. Mild global cortical atrophy. 3. Moderate chronic white matter microangiopathy is. CTA Neck: Critical 95% stenosis in the proximal left internal carotid artery. Satisfactory appearance of the right internal carotid artery. * Patient s/p TPA with resolution of symptoms * Evaluated by IR/Vascular and recommends carotid surgery outpatient and based on findings on ADITYA * Plan for ADITYA Tomorrow. * A1C 6.2, Prediabetic status advised and diet management recommended. 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 FURTHER RECOMMENDATION FOLLOWING ADITYA Continue Statin ADITYA per Neurology recommendation TTE with bubble study was negative Rehab assessment, PT/OT/ST Keep npo for aditya in am Discussed with Vascular, plans for outpatient surgery following ADITYA findings. Monitor H/H DVT/GI PROPHY ANTICIPATE DISCHARGE IF NO ALARMING FINDING ON ADITYA Plan discussed with patient and family History Interval history: Patient seen and examined at this time, resting comfortable. no new complaints, Awaiting ADITYA. understands it will be done tomorrow. Hospitalist Physical - Physical exam Narrative exam: General appearance: Present: no acute distress. - EENT Eyes: Present: PERRL ENT: hearing intact, clear oral mucosa - Neck Neck: Present: supple, normal ROM - Respiratory Respiratory effort: normal Respiratory: bilateral: CTA - Cardiovascular Heart Sounds: Present: S1 & S2. Absent: rub, click - Extremities Extremities: pulses symmetrical, No edema Peripheral Pulses: within normal limits - Abdominal General gastrointestinal: Present: soft, non-tender, non-distended, normal bowel sounds Male genitourinary: Present: normal - Integumentary Integumentary: Present: clear, warm, dry - Musculoskeletal Musculoskeletal: gait normal, strength equal bilaterally - Psychiatric Psychiatric: appropriate mood/affect, intact judgment & insight - Neurologic Neurologic: CNII-XII intact, moves all extremities - Constitutional Vitals: Temp Pulse Resp BP Pulse Ox 98.1 F 57 L 18 128/67 99 01/16/19 13:04 01/16/19 13:03 01/16/19 13:03 01/16/19 13:03 01/16/19 13:03 General appearance: Present: no acute distress, mild distress Results - Labs CBC & Chem 7: 01/16/19 03:46 01/16/19 06:30 Labs: Laboratory Last Values WBC 2.9 K/mm3 (4.5-11.0) L 01/16/19 03:46 RBC 3.16 M/mm3 (3.65-5.03) L 01/16/19 03:46 Hgb 9.9 gm/dl (11.8-15.2) L 01/16/19 03:46 Hct 29.2 % (35.5-45.6) L 01/16/19 03:46 MCV 92 fl (84-94) 01/16/19 03:46 MCH 31 pg (28-32) 01/16/19 03:46 MCHC 34 % (32-34) 01/16/19 03:46 RDW 14.3 % (13.2-15.2) 01/16/19 03:46 Plt Count 139 K/mm3 (140-440) L 01/16/19 03:46 Lymph % (Auto) 24.1 % (13.4-35.0) 01/12/19 17:35 [place] % (Auto) 12.1 % (0.0-7.3) H 01/12/19 17:35 Eos % (Auto) 1.7 % (0.0-4.3) 01/12/19 17:35 Baso % (Auto) 0.7 % (0.0-1.8) 01/12/19 17:35 Lymph # 0.9 K/mm3 (1.2-5.4) L 01/12/19 17:35 [place] # 0.4 K/mm3 (0.0-0.8) 01/12/19 17:35 Eos # 0.1 K/mm3 (0.0-0.4) 01/12/19 17:35 Baso # 0.0 K/mm3 (0.0-0.1) 01/12/19 17:35 Seg Neutrophils % 61.4 % (40.0-70.0) 01/12/19 17:35 Seg Neutrophils # 2.2 K/mm3 (1.8-7.7) 01/12/19 17:35 PT 13.7 Sec. (12.2-14.9) 01/12/19 17:35 INR 0.99 (0.87-1.13) 01/12/19 17:35 APTT 28.0 Sec. (24.2-36.6) 01/12/19 17:35 Thrombin Time 16.5 Sec. (15.1-19.6) 01/12/19 17:35 Sodium 140 mmol/L (137-145) 01/16/19 06:30 Potassium 3.7 mmol/L (3.6-5.0) 01/16/19 06:30 Chloride 108.5 mmol/L (98-107) H 01/16/19 06:30 Carbon Dioxide 24 mmol/L (22-30) 01/16/19 06:30 Anion Gap 11 mmol/L 01/16/19 06:30 BUN 8 mg/dL (9-20) L 01/16/19 06:30 Creatinine 0.8 mg/dL (0.8-1.5) 01/16/19 06:30 Estimated GFR > 60 ml/min 01/16/19 06:30 BUN/Creatinine Ratio 10 % 01/16/19 06:30 Glucose 98 mg/dL (75-100) 01/16/19 06:30 POC Glucose 97 (70-105) 01/16/19 07:39 Hemoglobin A1c 6.2 % (4-6) H 01/14/19 09:18 Calcium 8.2 mg/dL (8.4-10.2) L 01/16/19 06:30 Magnesium 1.50 mg/dL (1.7-2.3) L 01/16/19 06:30 Total Bilirubin 0.80 mg/dL (0.1-1.2) 01/12/19 17:35 AST 73 units/L (5-40) H 01/12/19 17:35 ALT 54 units/L (7-56) 01/12/19 17:35 Alkaline Phosphatase 98 units/L (35-129) 01/12/19 17:35 Total Creatine Kinase 135 units/L (55-170) 01/12/19 17:35 CK-MB (CK-2) 3.9 ng/mL (0.0-4.0) 01/12/19 17:35 CK-MB (CK-2) Rel Index 2.8 (0-4) 01/12/19 17:35 Troponin T < 0.010 ng/mL (0.00-0.029) 01/12/19 17:35 Total Protein 5.7 g/dL (6.3-8.2) L 01/12/19 17:35 Albumin 3.2 g/dL (3.9-5) L 01/12/19 17:35 Albumin/Globulin Ratio 1.3 % 01/12/19 17:35 Triglycerides 67 mg/dL (2-149) 01/13/19 05:02 Cholesterol 138 mg/dL (50-199) 01/13/19 05:02 LDL Cholesterol Direct 71 mg/dL (50-130) 01/13/19 05:02 HDL Cholesterol 68 mg/dL (40-59) H 01/13/19 05:02 Cholesterol/HDL Ratio 2.02 % 01/13/19 05:02 Active Medications - Current Medications Current Medications: Generic Name Dose Route Start Last Admin Trade Name Ameya PRN Reason Stop Dose Admin Acetaminophen 650 mg 01/12/19 19:01 Tylenol PO Q4H PRN Pain, Mild (1-3) Amlodipine Besylate 5 mg 01/13/19 10:00 01/16/19 11:30 Norvasc PO 5 mg DAILY NAPOLEON Administration Aspirin 81 mg 01/14/19 17:00 01/16/19 11:30 Baby Aspirin PO 81 mg QDAY NAPOLEON Administration Atorvastatin Calcium 40 mg 01/12/19 22:00 01/15/19 21:50 Lipitor PO 40 mg QHS NAPOLEON Administration Bisacodyl 10 mg 01/12/19 19:01 Dulcolax [place] QDAY PRN Constipation Clopidogrel Bisulfate 75 mg 01/16/19 10:00 01/16/19 11:30 Plavix PO 75 mg QDAY NAPOLEON Administration Diphenhydramine HCl 25 mg 01/13/19 20:35 01/13/19 21:34 Benadryl PO 25 mg QHS PRN Administration Sleep Ferrous Sulfate 325 mg 01/12/19 22:00 01/16/19 11:30 Feosol PO 325 mg BID NAPOLEON Administration Labetalol HCl 10 mg 01/12/19 17:53 Normodyne IV Q5MIN PRN to maintain SBP < 180 Magnesium Hydroxide 30 ml 01/12/19 19:01 Milk Of Magnesia PO Q4H PRN Constipation Metoclopramide HCl 10 mg 01/12/19 19:01 Reglan PO Q6H PRN Nausea And Vomiting Ondansetron HCl 4 mg 01/12/19 19:01 Zofran IV Q8H PRN Nausea And Vomiting Promethazine HCl 25 mg 01/12/19 19:01 Phenergan [place] Q6H PRN Nausea And Vomiting Sodium Chloride 10 ml 01/12/19 19:01 01/14/19 21:24 Sodium Chloride Flush Syringe 10 Ml IV 10 ml PRN PRN Administration LINE FLUSH
--- NOTE | 2019-01-16 16:15 | Progress Note ---
Assessment and Plan The patient is a 73-year-old male who presented with a right hemispheric CVA received TPA with resolution of his symptoms. Right common carotid and internal carotid artery has minimal narrowing. Not secondary to right ICA stenosis. Suspect source is embolic. Awaiting MADDI results. CT angiogram of the neck includes the arch making ad ditional CT not necessary. He will need left endarterectomy for 99% narrowing in the future. Timing will be based on MADDI results. Subjective Date of service: 01/16/19 Interval history: Doing better, no longer has weakness in his legs. Sitting in chair. Objective - Constitutional Vitals: Vital Signs - 12hr 01/16/19 01/16/19 01/16/19 04:32 08:16 08:17 Temperature 98.4 F 98.6 F Pulse Rate 55 L 57 L Respiratory 18 20 Rate Blood Pressure 128/70 147/78 O2 Sat by Pulse 100 99 Oximetry 01/16/19 01/16/19 01/16/19 10:00 13:03 13:04 Temperature 98.1 F Pulse Rate 57 L 57 L Respiratory 18 Rate Blood Pressure 128/67 O2 Sat by Pulse 98 99 Oximetry General appearance: Present: no acute distress - EENT Eyes: EOM intact ENT: hearing intact - Respiratory Respiratory effort: normal Extremities: normal temperature, normal color - Gastrointestinal General gastrointestinal: Present: soft - Neurologic Neurologic: moves all extremities - Psychiatric Psychiatric: appropriate mood/affect, cooperative - Labs CBC & Chem 7: 01/16/19 03:46 01/16/19 06:30 Labs: Abnormal lab results 01/12/19 01/15/19 01/16/19 Range/Units 17:35 21:13 03:46 WBC 2.9 L (4.5-11.0) K/mm3 RBC 3.16 L (3.65-5.03) M/mm3 Hgb 9.9 L (11.8-15.2) gm/dl Hct 29.2 L (35.5-45.6) % Plt Count 139 L (140-440) K/mm3 Chloride (98-107) mmol/L BUN (9-20) mg/dL POC Glucose 176 H 169 H (70-105) Calcium (8.4-10.2) mg/dL Magnesium (1.7-2.3) mg/dL 01/16/19 01/16/19 Range/Units 06:30 06:30 WBC (4.5-11.0) K/mm3 RBC (3.65-5.03) M/mm3 Hgb (11.8-15.2) gm/dl Hct (35.5-45.6) % Plt Count (140-440) K/mm3 Chloride 108.5 H (98-107) mmol/L BUN 8 L (9-20) mg/dL POC Glucose (70-105) Calcium 8.2 L (8.4-10.2) mg/dL Magnesium 1.50 L (1.7-2.3) mg/dL Medications & Allergies - Medications Allergies/Adverse Reactions: Allergies No Known Allergies Allergy (Verified 07/06/18 17:34) Home Medications: Home Medications Medication Instructions Recorded Confirmed Last Taken Type Amlodipine Besylate [Norvasc] 5 mg PO DAILY 01/12/19 01/12/19 Unknown History AtorvaSTATin [Lipitor] 20 mg PO DAILY 01/12/19 01/12/19 Unknown History Ferrous Sulfate [Iron 325 MG] 325 mg PO BID 01/12/19 01/12/19 Unknown History Lisinopril [Zestril TAB] 40 mg PO DAILY 01/12/19 01/12/19 Unknown History Active Medications: Generic Name Dose Route Start Last Admin Trade Name Freq PRN Reason Stop Dose Admin Acetaminophen 650 mg 01/12/19 19:01 Tylenol PO Q4H PRN Pain, Mild (1-3) Amlodipine Besylate 5 mg 01/13/19 10:00 01/16/19 11:30 Norvasc PO 5 mg DAILY NAPOLEON Administration Aspirin 81 mg 01/14/19 17:00 01/16/19 11:30 Baby Aspirin PO 81 mg QDAY NAPOLEON Administration Atorvastatin Calcium 40 mg 01/12/19 22:00 01/15/19 21:50 Lipitor PO 40 mg QHS NAPOLEON Administration Bisacodyl 10 mg 01/12/19 19:01 Dulcolax [place] QDAY PRN Constipation Clopidogrel Bisulfate 75 mg 01/16/19 10:00 01/16/19 11:30 Plavix PO 75 mg QDAY NAPOLEON Administration Diphenhydramine HCl 25 mg 01/13/19 20:35 01/13/19 21:34 Benadryl PO 25 mg QHS PRN Administration Sleep Ferrous Sulfate 325 mg 01/12/19 22:00 01/16/19 11:30 Feosol PO 325 mg BID NAPOLEON Administration Labetalol HCl 10 mg 01/12/19 17:53 Normodyne IV Q5MIN PRN to maintain SBP < 180 Magnesium Hydroxide 30 ml 01/12/19 19:01 Milk Of Magnesia PO Q4H PRN Constipation Metoclopramide HCl 10 mg 01/12/19 19:01 Reglan PO Q6H PRN Nausea And Vomiting Ondansetron HCl 4 mg 01/12/19 19:01 Zofran IV Q8H PRN Nausea And Vomiting Promethazine HCl 25 mg 01/12/19 19:01 Phenergan [place] Q6H PRN Nausea And Vomiting Sodium Chloride 10 ml 01/12/19 19:01 01/14/19 21:24 Sodium Chloride Flush Syringe 10 Ml IV 10 ml PRN PRN Administration LINE FLUSH
--- NOTE | 2019-01-16 19:18 | Progress Note ---
Assessment and Plan Patient alert, awake and well oriented. Resting on room air.O2 saturation 99%. Denies chest pain, shortness of breath or cough. No acute respiratory distress. Obtaining chest xray and ABGs - Patient Problems (1) Acidosis Current Visit: Yes Status: Acute Plan to address problem: Improving. Obtaining blood gases. (2) Acute ischemic stroke Current Visit: Yes Status: Acute Plan to address problem: Management as per neurology. (3) HLD (hyperlipidemia) Current Visit: Yes Status: Acute Qualifiers: Hyperlipidemia type: mixed hyperlipidemia Qualified Code(s): E78.2 - Mixed hyperlipidemia Plan to address problem: Management as per primary care. (4) HTN (hypertension) Current Visit: Yes Status: Acute Qualifiers: Hypertension type: essential hypertension Qualified Code(s): I10 - Essential (primary) hypertension Plan to address problem: Management as per primary care. Subjective Date of service: 01/16/19 Interval history: Patient alert, awake and well oriented. Resting on room air.O2 saturation 99%. Denies chest pain, shortness of breath or cough. No acute respiratory distress. Obtaining chest xray and ABGs. Objective Vital Signs - 12hr 01/16/19 01/16/19 01/16/19 08:16 08:17 10:00 Temperature 98.6 F Pulse Rate 57 L 57 L Respiratory 20 Rate Blood Pressure 147/78 O2 Sat by Pulse 99 98 Oximetry 01/16/19 01/16/19 01/16/19 13:03 13:04 16:42 Temperature 98.1 F Pulse Rate 57 L 61 Respiratory 18 18 Rate Blood Pressure 128/67 133/74 O2 Sat by Pulse 99 100 Oximetry 01/16/19 16:43 Temperature 98.3 F Pulse Rate Respiratory Rate Blood Pressure O2 Sat by Pulse Oximetry Constitutional: no acute distress, alert Eyes: non-icteric Neck: supple, no lymphadenopathy Effort: normal Ascultation: Bilateral: clear Cardiovascular: regular rate and rhythm Gastrointestinal: normoactive bowel sounds, soft, non-tender Integumentary: normal Extremities: no cyanosis, no edema Neurologic: normal mental status, pupils equal and round Psychiatric: mood appropriate CBC and BMP: 01/16/19 03:46 01/16/19 06:30 ABG, PT/INR, D-dimer: PT/INR, D-dimer PT 13.7 Sec. (12.2-14.9) 01/12/19 17:35 INR 0.99 (0.87-1.13) 01/12/19 17:35 Abnormal lab findings: Abnormal Labs 01/12/19 01/12/19 01/12/19 17:35 17:35 17:35 WBC 3.6 L RBC 3.52 L Hgb 10.9 L Hct 32.1 L Plt Count [place] % (Auto) 12.1 H Lymph # 0.9 L Potassium 3.3 L Chloride Carbon Dioxide 19 L BUN Glucose 166 H POC Glucose Hemoglobin A1c Calcium Magnesium 1.60 L AST 73 H Total Protein 5.7 L Albumin 3.2 L HDL Cholesterol 01/12/19 01/13/19 01/14/19 17:35 05:02 08:00 WBC RBC Hgb Hct Plt Count [place] % (Auto) Lymph # Potassium Chloride Carbon Dioxide BUN Glucose POC Glucose 176 H Hemoglobin A1c Calcium Magnesium 1.50 L AST Total Protein Albumin HDL Cholesterol 68 H 01/14/19 01/15/19 01/15/19 09:18 04:29 04:29 WBC 3.0 L RBC 3.31 L Hgb 10.3 L Hct 30.3 L Plt Count [place] % (Auto) Lymph # Potassium 3.4 L Chloride 109.1 H Carbon Dioxide 21 L BUN Glucose POC Glucose Hemoglobin A1c 6.2 H Calcium Magnesium AST Total Protein Albumin HDL Cholesterol 01/15/19 01/16/19 01/16/19 21:13 03:46 06:30 WBC 2.9 L RBC 3.16 L Hgb 9.9 L Hct 29.2 L Plt Count 139 L [place] % (Auto) Lymph # Potassium Chloride 108.5 H Carbon Dioxide BUN 8 L Glucose POC Glucose 169 H Hemoglobin A1c Calcium 8.2 L Magnesium AST Total Protein Albumin HDL Cholesterol 01/16/19 06:30 WBC RBC Hgb Hct Plt Count [place] % (Auto) Lymph # Potassium Chloride Carbon Dioxide BUN Glucose POC Glucose Hemoglobin A1c Calcium Magnesium 1.50 L AST Total Protein Albumin HDL Cholesterol
[2019-01-17 07:25] LABS: Hematocrit 28.7 % (35.5-45.6); Hemoglobin 9.7 gm/dl (11.8-15.2); Mean Corpuscular HGB Conc 34 % (32-34); Mean Corpuscular Volume 92 fl (84-94); Platelet Count 129 K/mm3 (140-440); Red Blood Count 3.12 M/mm3 (3.65-5.03)
--- NOTE | 2019-01-17 09:20 | XRay Report ---
Chest 2 views: History: Possible aspiration. Findings Normal cardiomediastinal silhouette. Trachea is midline. Evidence of COPD. No acute consolidation or pleural effusion. Impression: Suspected COPD. No acute lung changes.
--- NOTE | 2019-01-17 09:27 | Progress Note ---
Assessment and Plan Patient scheduled for MADDI tomorrow. Limitations to follow. He will ultimately require carotid endarterectomy of the left for critical stenosis. Subjective Date of service: 01/17/19 Principal diagnosis: right hemispheric stroke Interval history: Patient with a history of a right hemispheric stroke. His right ICA and CCA are widely patent. She does have 99% occlusion of his left ICA. Patient has not yet received his MADDI, scheduled for tomorrow. He is back to his baseline mental status and activities of daily living. Objective - Constitutional Vitals: Vital Signs - 12hr 01/16/19 01/17/19 01/17/19 22:49 03:39 08:21 Temperature 98.7 F 98.1 F 98.6 F Pulse Rate 53 L 56 L 61 Respiratory 18 18 18 Rate Blood Pressure 173/77 152/84 Blood Pressure 160/80 [Right] O2 Sat by Pulse 99 99 100 Oximetry General appearance: Present: no acute distress - EENT Eyes: PERRL, EOM intact ENT: hearing intact - Neck Neck: supple, normal ROM - Respiratory Respiratory effort: normal - Gastrointestinal General gastrointestinal: Present: deferred Rectal Exam: deferred - Genitourinary Male genitourinary: deferred - Integumentary Integumentary: clear, warm - Musculoskeletal Musculoskeletal: no generalized weakness - Neurologic Neurologic: no focal deficits - Psychiatric Psychiatric: appropriate mood/affect, cooperative - Labs CBC & Chem 7: 01/17/19 07:25 01/16/19 06:30 Labs: Abnormal lab results 01/12/19 01/17/19 Range/Units 17:35 07:25 WBC 3.4 L (4.5-11.0) K/mm3 RBC 3.12 L (3.65-5.03) M/mm3 Hgb 9.7 L (11.8-15.2) gm/dl Hct 28.7 L (35.5-45.6) % Plt Count 129 L (140-440) K/mm3 POC Glucose 176 H (70-105) Medications & Allergies - Medications Allergies/Adverse Reactions: Allergies No Known Allergies Allergy (Verified 07/06/18 17:34) Home Medications: Home Medications Medication Instructions Recorded Confirmed Last Taken Type Amlodipine Besylate [Norvasc] 5 mg PO DAILY 01/12/19 01/12/19 Unknown History AtorvaSTATin [Lipitor] 20 mg PO DAILY 01/12/19 01/12/19 Unknown History Ferrous Sulfate [Iron 325 MG] 325 mg PO BID 01/12/19 01/12/19 Unknown History Lisinopril [Zestril TAB] 40 mg PO DAILY 01/12/19 01/12/19 Unknown History Active Medications: Generic Name Dose Route Start Last Admin Trade Name Freq PRN Reason Stop Dose Admin Acetaminophen 650 mg 01/12/19 19:01 Tylenol PO Q4H PRN Pain, Mild (1-3) Amlodipine Besylate 5 mg 01/13/19 10:00 01/16/19 11:30 Norvasc PO 5 mg DAILY [place] Administration Aspirin 81 mg 01/14/19 17:00 01/16/19 11:30 Baby Aspirin PO 81 mg QDAY [place] Administration Atorvastatin Calcium 40 mg 01/12/19 22:00 01/16/19 21:58 Lipitor PO 40 mg QHS [place] Administration Bisacodyl 10 mg 01/12/19 19:01 Dulcolax [place] QDAY PRN Constipation Clopidogrel Bisulfate 75 mg 01/16/19 10:00 01/16/19 11:30 Plavix PO 75 mg QDAY [place] Administration Diphenhydramine HCl 25 mg 01/13/19 20:35 01/13/19 21:34 Benadryl PO 25 mg QHS PRN Administration Sleep Ferrous Sulfate 325 mg 01/12/19 22:00 01/16/19 21:58 Feosol PO 325 mg BID [place] Administration Labetalol HCl 10 mg 01/12/19 17:53 Normodyne IV Q5MIN PRN to maintain SBP < 180 Magnesium Hydroxide 30 ml 01/12/19 19:01 Milk Of Magnesia PO Q4H PRN Constipation Metoclopramide HCl 10 mg 01/12/19 19:01 Reglan PO Q6H PRN Nausea And Vomiting Ondansetron HCl 4 mg 01/12/19 19:01 Zofran IV Q8H PRN Nausea And Vomiting Promethazine HCl 25 mg 01/12/19 19:01 Phenergan [place] Q6H PRN Nausea And Vomiting Sodium Chloride 10 ml 01/12/19 19:01 01/14/19 21:24 Sodium Chloride Flush Syringe 10 Ml IV 10 ml PRN PRN Administration LINE FLUSH
[2019-01-17] MEDS: NORVASC PO SCH (10:29)
[2019-01-17] MEDS: FEOSOL PO SCH ×2 (10:31→21:38)
[2019-01-17] MEDS: BABY ASPIRIN PO SCH (10:31)
[2019-01-17] MEDS: PLAVIX PO SCH (10:31)
--- NOTE | 2019-01-17 11:41 | Event Note ---
Date: 01/17/19 MADDI is scheduled tomorrow as requested for rule out cardioembolic source.
--- NOTE | 2019-01-17 16:04 | Progress Note ---
Assessment and Plan Assessment and plan: Patient is a 73 yo man with a history of HTN, HLD and Anemia who presented to [facility] ED with AMS, dizziness and left sided weakness. Teleneurology consulted, and patient was treated with TPA with improvement in symptoms.. PCP: Corinne. Today patient feels back to baselin, imaging studies consistent on MR Brain * Carotid doppler: IMPRESSION: * 50-79% stenosis at the distal right ICA. * 80- 99% stenosis at the proximal left ICA. * MR brain: 1. Multifocal acute/subacute nonhemorrhagic infarcts of the frontal lobes and right parietal lobe. The pattern is consistent with embolic infarcts. 2. Mild global cortical atrophy. 3. Moderate chronic white matter microangiopathy is. * CTA Neck: Critical 95% stenosis in the proximal left internal carotid artery. Satisfactory appearance of the right internal carotid artery. 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 FURTHER RECOMMENDATION FOLLOWING MADDI Continue Statin MADDI per Neurology recommendation TTE with bubble study was negative Rehab assessment, PT/OT/ST Keep npo for maddi in am Discussed with Vascular, plans for outpatient surgery following AMDDI findings. Monitor H/H DVT/GI PROPHY ANTICIPATE DISCHARGE IF NO ALARMING FINDING ON MADDI Plan discussed with patient and family MADDI tomorrow History Interval history: Patient was seen and examined. Follow-up on current diagnosis of CVA. No overnight events reported to me. Patient denies any chest pain, shortness breath, nausea/vomiting or severe headaches. Imaging, nursing note, chart, labs and old chart reviewed. Discussed with patient. Hospitalist Physical - Physical exam Narrative exam: Gen: WDWN, NAD, Awake, Alert, Orientated HEENT: NCAT, EOMI, PERRL, OP Clear Neck: supple, no adenopathy, no thyromegaly, no JVD CVS/Heart: RRR, normal S1S2, pulses present bilaterally Chest/Lungs: CTA B, Symmetrical chest expansion, good air entry bilaterally GI/Abdomen: soft, NTND, good bowel sounds, no guarding or rebound /Bladder: no suprapubic tenderness, no CVA or paraspinal tenderness Extermity/Skin: no c/c/e, no obvious rash MSK: FROM x 4 Neuro: CN 2-12 grossly intact, no new focal deficits Psych: calm - Constitutional Vitals: Temp Pulse Resp BP Pulse Ox 98.6 F 53 L 18 149/102 100 01/17/19 08:21 01/17/19 12:32 01/17/19 08:21 01/17/19 12:32 01/17/19 12:32 General appearance: Present: no acute distress Results - Labs CBC & Chem 7: 01/17/19 07:25 01/16/19 06:30 Labs: Laboratory Last Values WBC 3.4 K/mm3 (4.5-11.0) L 01/17/19 07:25 RBC 3.12 M/mm3 (3.65-5.03) L 01/17/19 07:25 Hgb 9.7 gm/dl (11.8-15.2) L 01/17/19 07:25 Hct 28.7 % (35.5-45.6) L 01/17/19 07:25 MCV 92 fl (84-94) 01/17/19 07:25 MCH 31 pg (28-32) 01/17/19 07:25 MCHC 34 % (32-34) 01/17/19 07:25 RDW 14.0 % (13.2-15.2) 01/17/19 07:25 Plt Count 129 K/mm3 (140-440) L 01/17/19 07:25 Lymph % (Auto) 24.1 % (13.4-35.0) 01/12/19 17:35 [place] % (Auto) 12.1 % (0.0-7.3) H 01/12/19 17:35 Eos % (Auto) 1.7 % (0.0-4.3) 01/12/19 17:35 Baso % (Auto) 0.7 % (0.0-1.8) 01/12/19 17:35 Lymph # 0.9 K/mm3 (1.2-5.4) L 01/12/19 17:35 [place] # 0.4 K/mm3 (0.0-0.8) 01/12/19 17:35 Eos # 0.1 K/mm3 (0.0-0.4) 01/12/19 17:35 Baso # 0.0 K/mm3 (0.0-0.1) 01/12/19 17:35 Seg Neutrophils % 61.4 % (40.0-70.0) 01/12/19 17:35 Seg Neutrophils # 2.2 K/mm3 (1.8-7.7) 01/12/19 17:35 PT 13.7 Sec. (12.2-14.9) 01/12/19 17:35 INR 0.99 (0.87-1.13) 01/12/19 17:35 APTT 28.0 Sec. (24.2-36.6) 01/12/19 17:35 16.5 Sec. (15.1-19.6) 01/12/19 17:35 POC ABG pH 7.382 (7.35-7.45) 01/17/19 11:03 POC ABG pCO2 39.1 (35-45) 01/17/19 11:03 POC ABG pO2 96 (80-105) 01/17/19 11:03 POC ABG HCO3 23.2 (22-26 mml/L) 01/17/19 11:03 POC ABG Total CO2 24 (23-27mmol/L) 01/17/19 11:03 POC ABG O2 Sat 97 01/17/19 11:03 POC ABG Base Excess -2 ((-2) - (+3)mmol/L) 01/17/19 11:03 21 % 01/17/19 11:03 Sodium 140 mmol/L (137-145) 01/16/19 06:30 Potassium 3.7 mmol/L (3.6-5.0) 01/16/19 06:30 Chloride 108.5 mmol/L (98-107) H 01/16/19 06:30 Carbon Dioxide 24 mmol/L (22-30) 01/16/19 06:30 11 mmol/L 01/16/19 06:30 BUN 8 mg/dL (9-20) L 01/16/19 06:30 0.8 mg/dL (0.8-1.5) 01/16/19 06:30 Estimated GFR > 60 ml/min 01/16/19 06:30 10 % 01/16/19 06:30 Glucose 98 mg/dL (75-100) 01/16/19 06:30 POC Glucose 97 (70-105) 01/16/19 07:39 6.2 % (4-6) H 01/14/19 09:18 Calcium 8.2 mg/dL (8.4-10.2) L 01/16/19 06:30 Magnesium 1.50 mg/dL (1.7-2.3) L 01/16/19 06:30 0.80 mg/dL (0.1-1.2) 01/12/19 17:35 AST 73 units/L (5-40) H 01/12/19 17:35 ALT 54 units/L (7-56) 01/12/19 17:35 98 units/L (35-129) 01/12/19 17:35 135 units/L (55-170) 01/12/19 17:35 CK-MB (CK-2) 3.9 ng/mL (0.0-4.0) 01/12/19 17:35 CK-MB (CK-2) Rel Index 2.8 (0-4) 01/12/19 17:35 < 0.010 ng/mL (0.00-0.029) 01/12/19 17:35 5.7 g/dL (6.3-8.2) L 01/12/19 17:35 3.2 g/dL (3.9-5) L 01/12/19 17:35 1.3 % 01/12/19 17:35 Triglycerides 67 mg/dL (2-149) 01/13/19 05:02 Cholesterol 138 mg/dL (50-199) 01/13/19 05:02 71 mg/dL (50-130) 01/13/19 05:02 68 mg/dL (40-59) H 01/13/19 05:02 2.02 % 01/13/19 05:02 Active Medications - Current Medications Current Medications: Generic Name Dose Route Start Last Admin Trade Name Freq PRN Reason Stop Dose Admin Acetaminophen 650 mg 01/12/19 19:01 Tylenol PO Q4H PRN Pain, Mild (1-3) Amlodipine Besylate 5 mg 01/13/19 10:00 01/17/19 10:29 Norvasc PO 5 mg DAILY [place] Administration Aspirin 81 mg 01/14/19 17:00 01/17/19 10:31 Baby Aspirin PO 81 mg QDAY [place] Administration Atorvastatin Calcium 40 mg 01/12/19 22:00 01/16/19 21:58 Lipitor PO 40 mg QHS [place] Administration Bisacodyl 10 mg 01/12/19 19:01 Dulcolax [place] QDAY PRN Constipation Clopidogrel Bisulfate 75 mg 01/16/19 10:00 01/17/19 10:31 Plavix PO 75 mg QDAY [place] Administration Diphenhydramine HCl 25 mg 01/13/19 20:35 01/13/19 21:34 Benadryl PO 25 mg QHS PRN Administration Sleep Ferrous Sulfate 325 mg 01/12/19 22:00 01/17/19 10:31 Feosol PO 325 mg BID [place] Administration Labetalol HCl 10 mg 01/12/19 17:53 Normodyne IV Q5MIN PRN to maintain SBP < 180 Magnesium Hydroxide 30 ml 01/12/19 19:01 Milk Of Magnesia PO Q4H PRN Constipation Metoclopramide HCl 10 mg 01/12/19 19:01 Reglan PO Q6H PRN Nausea And Vomiting Ondansetron HCl 4 mg 01/12/19 19:01 Zofran IV Q8H PRN Nausea And Vomiting Promethazine HCl 25 mg 01/12/19 19:01 Phenergan [place] Q6H PRN Nausea And Vomiting Sodium Chloride 10 ml 01/12/19 19:01 01/14/19 21:24 Sodium Chloride Flush Syringe 10 Ml IV 10 ml PRN PRN Administration LINE FLUSH
[2019-01-17] MEDS ORDERED: MAGNESIUM SULFATE 2GM/50ML 2 GM/50 ML BAG IV ONE (16:06)
--- NOTE | 2019-01-17 18:23 | Progress Note ---
Assessment and Plan Patient alert, awake and well oriented. Resting on room air.O2 saturation 100%. Denies chest pain, shortness of breath or cough. No acute respiratory distress. Chest xray reported no acute lung changes. Suspected COPD. ABG on room air POC ABG pH 7.382 (7.35-7.45) 01/17/19 11:03 POC ABG pCO2 39.1 (35-45) 01/17/19 11:03 POC ABG pO2 96 (80-105) 01/17/19 11:03 POC ABG HCO3 23.2 (22-26 mml/L) 01/17/19 11:03 POC ABG Total CO2 24 (23-27mmol/L) 01/17/19 11:03 POC ABG O2 Sat 97 01/17/19 11:03 - Patient Problems (1) Acidosis Current Visit: Yes Status: Acute Plan to address problem: Improved. ABG on room air POC ABG pH 7.382 (7.35-7.45) 01/17/19 11:03 POC ABG pCO2 39.1 (35-45) 01/17/19 11:03 POC ABG pO2 96 (80-105) 01/17/19 11:03 POC ABG HCO3 23.2 (22-26 mml/L) 01/17/19 11:03 POC ABG Total CO2 24 (23-27mmol/L) 01/17/19 11:03 POC ABG O2 Sat 97 01/17/19 11:03 (2) Acute ischemic stroke Current Visit: Yes Status: Acute Plan to address problem: Management as per neurology. (3) HLD (hyperlipidemia) Current Visit: Yes Status: Acute Qualifiers: Hyperlipidemia type: mixed hyperlipidemia Qualified Code(s): E78.2 - Mixed hyperlipidemia Plan to address problem: Management as per primary care. (4) HTN (hypertension) Current Visit: Yes Status: Acute Qualifiers: Hypertension type: essential hypertension Qualified Code(s): I10 - Essential (primary) hypertension Plan to address problem: Management as per primary care. Subjective Date of service: 01/17/19 Principal diagnosis: right hemispheric stroke Interval history: Patient alert, awake and well oriented. Resting on room air.O2 saturation 100%. Denies chest pain, shortness of breath or cough. No acute respiratory distress. Chest xray reported no acute lung changes. Suspected COPD. ABG on room air POC ABG pH 7.382 (7.35-7.45) 01/17/19 11:03 POC ABG pCO2 39.1 (35-45) 01/17/19 11:03 POC ABG pO2 96 (80-105) 01/17/19 11:03 POC ABG HCO3 23.2 (22-26 mml/L) 01/17/19 11:03 POC ABG Total CO2 24 (23-27mmol/L) 01/17/19 11:03 POC ABG O2 Sat 97 01/17/19 11:03 Objective Vital Signs - 12hr 01/17/19 01/17/19 01/17/19 08:21 10:00 10:29 Temperature 98.6 F Pulse Rate 61 97 H 68 Respiratory 18 Rate Blood Pressure 152/84 152/84 O2 Sat by Pulse 100 Oximetry 01/17/19 01/17/19 12:32 17:00 Temperature 98.3 F Pulse Rate 53 L 58 L Respiratory 18 Rate Blood Pressure 149/102 147/80 O2 Sat by Pulse 100 100 Oximetry Constitutional: no acute distress, alert Eyes: non-icteric Neck: supple, no lymphadenopathy Effort: normal Ascultation: Bilateral: clear Cardiovascular: regular rate and rhythm Gastrointestinal: normoactive bowel sounds, soft, non-tender Integumentary: normal Extremities: no cyanosis, no edema Neurologic: normal mental status, pupils equal and round Psychiatric: mood appropriate CBC and BMP: 01/17/19 07:25 01/16/19 06:30 ABG, PT/INR, D-dimer: ABG POC ABG pH 7.382 (7.35-7.45) 01/17/19 11:03 POC ABG pCO2 39.1 (35-45) 01/17/19 11:03 POC ABG pO2 96 (80-105) 01/17/19 11:03 POC ABG HCO3 23.2 (22-26 mml/L) 01/17/19 11:03 POC ABG Total CO2 24 (23-27mmol/L) 01/17/19 11:03 POC ABG O2 Sat 97 01/17/19 11:03 PT/INR, D-dimer PT 13.7 Sec. (12.2-14.9) 01/12/19 17:35 INR 0.99 (0.87-1.13) 01/12/19 17:35 Abnormal lab findings: Abnormal Labs 01/12/19 01/12/19 01/12/19 17:35 17:35 17:35 WBC 3.6 L RBC 3.52 L Hgb 10.9 L Hct 32.1 L Plt Count [place] % (Auto) 12.1 H Lymph # 0.9 L Potassium 3.3 L Chloride Carbon Dioxide 19 L BUN Glucose 166 H POC Glucose Hemoglobin A1c Calcium Magnesium 1.60 L AST 73 H Total Protein 5.7 L Albumin 3.2 L HDL Cholesterol 01/12/19 01/13/19 01/14/19 17:35 05:02 08:00 WBC RBC Hgb Hct Plt Count [place] % (Auto) Lymph # Potassium Chloride Carbon Dioxide BUN Glucose POC Glucose 176 H Hemoglobin A1c Calcium Magnesium 1.50 L AST Total Protein Albumin HDL Cholesterol 68 H 01/14/19 01/15/19 01/15/19 09:18 04:29 04:29 WBC 3.0 L RBC 3.31 L Hgb 10.3 L Hct 30.3 L Plt Count [place] % (Auto) Lymph # Potassium 3.4 L Chloride 109.1 H Carbon Dioxide 21 L BUN Glucose POC Glucose Hemoglobin A1c 6.2 H Calcium Magnesium AST Total Protein Albumin HDL Cholesterol 01/15/19 01/16/19 01/16/19 21:13 03:46 06:30 WBC 2.9 L RBC 3.16 L Hgb 9.9 L Hct 29.2 L Plt Count 139 L [place] % (Auto) Lymph # Potassium Chloride 108.5 H Carbon Dioxide BUN 8 L Glucose POC Glucose 169 H Hemoglobin A1c Calcium 8.2 L Magnesium AST Total Protein Albumin HDL Cholesterol 01/16/19 01/17/19 06:30 07:25 WBC 3.4 L RBC 3.12 L Hgb 9.7 L Hct 28.7 L Plt Count 129 L [place] % (Auto) Lymph # Potassium Chloride Carbon Dioxide BUN Glucose POC Glucose Hemoglobin A1c Calcium Magnesium 1.50 L AST Total Protein Albumin HDL Cholesterol Chest x-ray: report reviewed (No acute process. suspect COPD reported.), image reviewed
[2019-01-17] MEDS: BENADRYL PO PRN (21:39)
[2019-01-18 07:06] LABS: Hematocrit 29.8 % (35.5-45.6); Mean Corpuscular HGB Conc 34 % (32-34); Mean Corpuscular Volume 92 fl (84-94); Platelet Count 141 K/mm3 (140-440); Red Blood Count 3.25 M/mm3 (3.65-5.03); Red Cell Distribution Width 13.9 % (13.2-15.2)
[2019-01-18 07:30] LABS: BUN/Creatinine Ratio 13; Blood Urea Nitrogen 9 mg/dL (9-20); Calcium 8.5 mg/dL (8.4-10.2); Hemolysis Index 6
[2019-01-18] MEDS ORDERED: SUBLIMAZE IV ONE (09:00)
[2019-01-18] MEDS ORDERED: NACL 0.9% 500 ML 500 ML ONE (09:07)
[2019-01-18] MEDS ORDERED: HURRICAINE ONE 20% TOPICAL SPRAY MM NR (10:00)
[2019-01-18] MEDS ORDERED: VERSED IV ONE (10:00)
[2019-01-18 10:28] VITALS: BP 142/72
[2019-01-18] MEDS: BABY ASPIRIN PO SCH (10:30)
[2019-01-18] MEDS: PLAVIX PO SCH (10:30)
[2019-01-18] MEDS: NORVASC PO SCH (10:30)
[2019-01-18] MEDS: FEOSOL PO SCH (10:30)
--- NOTE | 2019-01-18 11:12 | Progress Note ---
Assessment and Plan Patient will need to follow up with us. The findings of the patient's MADDI were discussed with the patient. He will follow up with us for scheduling of his left carotid endarterectomy as an outpatient. Okay to discharge home from a vascular standpoint. The patient is on appropriate medical therapy. Subjective Date of service: 01/18/19 Principal diagnosis: right hemispheric stroke Interval history: Patient with a history of right-sided CVA. He underwent his MADDI today which was negative for cardiac thrombus. 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 Patient is back to his baseline mental status and is ambulating without assistance. Objective - Constitutional Vitals: Vital Signs - 12hr 01/18/19 01/18/19 01/18/19 00:11 05:00 07:35 Temperature 98.4 F 98.2 F 98.6 F Temperature [ Pre-Procedure] Pulse Rate 52 L 48 L 51 L Pulse Rate [ Intra-Procedure ] Pulse Rate [ Post-Procedure] Pulse Rate [Pre -Procedure] Respiratory 18 18 18 Rate Respiratory Rate [Intra- Procedure] Respiratory Rate [Post- Procedure] Respiratory Rate [Pre- Procedure] Blood Pressure 173/82 154/78 155/80 Blood Pressure [Intra- Procedure] Blood Pressure [Post-Procedure ] Blood Pressure [Pre-Procedure] O2 Sat by Pulse 100 98 99 Oximetry O2 Sat by Pulse Oximetry [ Intra-Procedure ] O2 Sat by Pulse Oximetry [Post -Procedure] O2 Sat by Pulse Oximetry [Pre- Procedure] 01/18/19 01/18/19 01/18/19 09:17 09:30 09:35 Temperature Temperature [ 97.8 F Pre-Procedure] Pulse Rate Pulse Rate [ 60 52 L Intra-Procedure ] Pulse Rate [ Post-Procedure] Pulse Rate [Pre 56 L -Procedure] Respiratory Rate Respiratory 21 16 Rate [Intra- Procedure] Respiratory Rate [Post- Procedure] Respiratory 15 Rate [Pre- Procedure] Blood Pressure Blood Pressure 169/92 145/77 [Intra- Procedure] Blood Pressure [Post-Procedure ] Blood Pressure 169/84 [Pre-Procedure] O2 Sat by Pulse Oximetry O2 Sat by Pulse 100 100 Oximetry [ Intra-Procedure ] O2 Sat by Pulse Oximetry [Post -Procedure] O2 Sat by Pulse 100 Oximetry [Pre- Procedure] 01/18/19 01/18/19 01/18/19 09:40 09:45 10:00 Temperature Temperature [ Pre-Procedure] Pulse Rate Pulse Rate [ Intra-Procedure ] Pulse Rate [ 56 L 56 L 54 L Post-Procedure] Pulse Rate [Pre -Procedure] Respiratory Rate Respiratory Rate [Intra- Procedure] Respiratory 20 19 16 Rate [Post- Procedure] Respiratory Rate [Pre- Procedure] Blood Pressure Blood Pressure [Intra- Procedure] Blood Pressure 139/76 135/78 142/72 [Post-Procedure ] Blood Pressure [Pre-Procedure] O2 Sat by Pulse Oximetry O2 Sat by Pulse Oximetry [ Intra-Procedure ] O2 Sat by Pulse 100 100 100 Oximetry [Post -Procedure] O2 Sat by Pulse Oximetry [Pre- Procedure] General appearance: Present: no acute distress - EENT Eyes: EOM intact ENT: hearing intact - Neck Neck: supple, normal ROM - Respiratory Respiratory effort: normal - Cardiovascular Rhythm: regular Extremities: no ischemia, Full ROM - Gastrointestinal General gastrointestinal: Present: deferred Rectal Exam: deferred - Genitourinary Male genitourinary: deferred - Musculoskeletal Musculoskeletal: no generalized weakness - Neurologic Neurologic: no focal deficits - Psychiatric Psychiatric: appropriate mood/affect, cooperative - Labs CBC & Chem 7: 01/18/19 06:44 01/18/19 06:44 Labs: Abnormal lab results 01/18/19 01/18/19 Range/Units 06:44 06:44 WBC 2.9 L (4.5-11.0) K/mm3 RBC 3.25 L (3.65-5.03) M/mm3 Hgb 10.0 L (11.8-15.2) gm/dl Hct 29.8 L (35.5-45.6) % Chloride 108.1 H (98-107) mmol/L Creatinine 0.7 L (0.8-1.5) mg/dL Glucose 116 H (75-100) mg/dL Medications & Allergies - Medications Allergies/Adverse Reactions: Allergies No Known Allergies Allergy (Verified 07/06/18 17:34) Home Medications: Home Medications Medication Instructions Recorded Confirmed Last Taken Type Amlodipine Besylate [Norvasc] 5 mg PO DAILY 01/12/19 01/12/19 Unknown History AtorvaSTATin [Lipitor] 20 mg PO DAILY 01/12/19 01/12/19 Unknown History Ferrous Sulfate [Iron 325 MG] 325 mg PO BID 01/12/19 01/12/19 Unknown History Lisinopril [Zestril TAB] 40 mg PO DAILY 01/12/19 01/12/19 Unknown History Active Medications: Generic Name Dose Route Start Last Admin Trade Name Ameya PRN Reason Stop Dose Admin Acetaminophen 650 mg 01/12/19 19:01 Tylenol PO Q4H PRN Pain, Mild (1-3) Amlodipine Besylate 5 mg 01/13/19 10:00 01/18/19 10:30 Norvasc PO 5 mg DAILY NAOPLEON Administration Aspirin 81 mg 01/14/19 17:00 01/18/19 10:30 Baby Aspirin PO 81 mg QDAY NAPOLEON Administration Atorvastatin Calcium 40 mg 01/12/19 22:00 01/17/19 21:38 Lipitor PO 40 mg QHS NAPOLEON Administration Bisacodyl 10 mg 01/12/19 19:01 Dulcolax WA QDAY PRN Constipation Clopidogrel Bisulfate 75 mg 01/16/19 10:00 01/18/19 10:30 Plavix PO 75 mg QDAY NAPOLEON Administration Diphenhydramine HCl 25 mg 01/13/19 20:35 01/17/19 21:39 Benadryl PO 25 mg QHS PRN Administration Sleep Ferrous Sulfate 325 mg 01/12/19 22:00 01/18/19 10:30 Feosol PO 325 mg BID NAPOLEON Administration Labetalol HCl 10 mg 01/12/19 17:53 Normodyne IV Q5MIN PRN to maintain SBP < 180 Magnesium Hydroxide 30 ml 01/12/19 19:01 Milk Of Magnesia PO Q4H PRN Constipation Metoclopramide HCl 10 mg 01/12/19 19:01 Reglan PO Q6H PRN Nausea And Vomiting Ondansetron HCl 4 mg 01/12/19 19:01 Zofran IV Q8H PRN Nausea And Vomiting Promethazine HCl 25 mg 01/12/19 19:01 Phenergan [place] Q6H PRN Nausea And Vomiting Sodium Chloride 10 ml 01/12/19 19:01 01/14/19 21:24 Sodium Chloride Flush Syringe 10 Ml IV 10 ml PRN PRN Administration LINE FLUSH
--- NOTE | 2019-01-18 11:31 | Discharge Summary ---
Providers - Providers Date of Admission: 01/12/19 19:01 Date of discharge: 01/18/19 Attending physician: TASNEEM LAZARO 01/12/19 Consult to Physician [CONS] Stat Comment: Consulting Provider: RIYA WOOD Physician Instructions: Reason For Exam: suspected stroke 01/12/19 18:53 Consult to Physician [CONS] Urgent Comment: Dr. Santillan spoke with Dr. Zepeda @ 0623 Consulting Provider: YARY ZEPEDA Physician Instructions: Reason For Exam: cva s/p tpa 01/12/19 19:01 Occupational Therapy Evaluate and Treat [CONS] Routine Comment: Reason For Exam: Neuro deficits Physical Therapy Evaluation and Treat [CONS] Routine Comment: Reason For Exam: Neuro deficits 01/12/19 19:03 Speech Therapy Evaluation and Treat [CONS] Routine Reason For Exam: swallow eval 01/12/19 19:06 Consult to Physician [CONS] Routine Comment: Consulting Provider: JAYME GALLEGOS Physician Instructions: Reason For Exam: cva 01/14/19 07:41 Consult to Physician [CONS] Routine Comment: Consulting Provider: DEENA LOPEZ Physician Instructions: Reason For Exam: ICA STENOSIS Hospitalization Condition: Stable Hospital course: Patient is a 73 yo man with a history of HTN, HLD and Anemia who presented to [facility] ED with AMS, dizziness and left sided weakness. Teleneurology consulted, and patient was treated with tPA with improvement in symptoms.. PCP: Corinne. Today patient feels back to baselin, imaging studies consistent on MR Brain * Carotid doppler: IMPRESSION: * 50-79% stenosis at the distal right ICA. * 80- 99% stenosis at the proximal left ICA. * MR brain: 1. Multifocal acute/subacute nonhemorrhagic infarcts of the frontal lobes and right parietal lobe. The pattern is consistent with embolic infarcts. 2. Mild global cortical atrophy. 3. Moderate chronic white matter microangiopathy is. * CTA Neck: Critical 95% stenosis in the proximal left internal carotid artery. Satisfactory appearance of the right internal carotid artery. Acute CVA likely embolic- MR Bilateral frontal right parietal acute infarcts s/p tPA Acute Right MCA stroke Acute Metabolic Encephalopathy- ressolved Acute Critical Left ICA occlusion- 95%, plavix added per vascular recommendation, d/w Dr. Pardo, angel to discharge, Left CEA in 2 weeks. Hypomagenesemia HTN/HLP Anemina of chronic disease ACIDOSIS Thrombocytopenia Disposition: DC-01 TO HOME OR SELFCARE Time spent for discharge: 36 minutes Core Measure Documentation - Palliative Care Palliative Care/ Comfort Measures: Not Applicable - Core Measures Any of the following diagnoses?: stroke - VTE Discharge Requirements Deep Vein Thrombosis/Pulmonary Embolism Present on Admission: No Has pt received <5 days of overlap therapy or INR<2.0: No Anticoagulant overlap therapy prescribed at discharge: No Contraindication No Overlap Therapy order at DC: Not Indicated - Stroke Discharge Requirements Statin for LDL = or >70 mg/dl on DC: Yes Anticoag for atrial fib/atrial flutter: Not Applicable Antithrombotic for ischemic stroke: Yes Exam - Physical Exam Narrative exam: Gen: WDWN, NAD, Awake, Alert, Orientated HEENT: NCAT, EOMI, PERRL, OP Clear Neck: supple, no adenopathy, no thyromegaly, no JVD CVS/Heart: RRR, normal S1S2, pulses present bilaterally Chest/Lungs: CTA B, Symmetrical chest expansion, good air entry bilaterally GI/Abdomen: soft, NTND, good bowel sounds, no guarding or rebound /Bladder: no suprapubic tenderness, no CVA or paraspinal tenderness Extermity/Skin: no c/c/e, no obvious rash MSK: FROM x 4 Neuro: CN 2-12 grossly intact, no new focal deficits Psych: calm - Constitutional Vitals: Temp Pulse Resp BP Pulse Ox 97.8 F 54 L 16 142/72 100 01/18/19 09:17 01/18/19 10:00 01/18/19 10:00 01/18/19 10:00 01/18/19 10:00 Plan Activity: other (no strenous activity, no yard work, no moving furniture, no sex, no cleaning until cleared by Vascular Surgery) Diet: low salt Special Instructions: no heavy lifting Follow up with: [facility] [Other] - 3-5 Days YARY ZEPEDA MD [Staff Physician] - 7 Days JAYME GALLEGOS MD [Staff Physician] - 10 Days DEENA LOPEZ MD [Staff Physician] - 14 Days Prescriptions: AtorvaSTATin [Lipitor] 40 mg PO QHS #30 tablet Aspirin [Aspirin BABY CHEW TAB] 81 mg PO QDAY #30 tab.chew Clopidogrel [Plavix] 75 mg PO QDAY #30 tablet
== END 2019-01-18 12:15 | disposition home or self-care (01) | DRG 61 ==
LOC: ED 17:15 → CC1 19:01 → 4A 01-13 18:01
PROVIDERS: ADMIT Internal Medicine; ATTEND Internal Medicine
PROC: 3E03317 Introduction of Other Thrombolytic into Peripheral Vein, Percutaneous Approach (ICD-10-PCS; principal; 2019-01-12)
PROC: 4A033R1 Measurement of Arterial Saturation, Peripheral, Percutaneous Approach (ICD-10-PCS; 2019-01-17)
DX: I63.411 Cerebral infarction due to embolism of right middle cerebral artery (principal); G93.41 Metabolic encephalopathy; G81.94 Hemiplegia, unspecified affecting left nondominant side; E87.2 Acidosis; R29.709 NIHSS score 9; I10 Essential (primary) hypertension; D63.8 Anemia in other chronic diseases classified elsewhere; E78.2 Mixed hyperlipidemia; E83.42 Hypomagnesemia; I65.22 Occlusion and stenosis of left carotid artery; D69.6 Thrombocytopenia, unspecified; Z82.49 Family history of ischemic heart disease and other diseases of the circulatory system
CPT/HCPCS: 36415; 36600; 70450; 70496; 70498; 70544; 70551; 71046; 80048; 80053; 80061; 82550; 82553; 82803; 82962; 83036; 83735; 84484; 85025; 85027; 85610; 85670; 85730; 93005; 93010; 93306; 93312; 93320; 93325; 93880; 96374; 96375; 99292; G0378; A9270-GY; J1200; J2250; J2997; J3010; J3475; J7030; J7040; Q9967

== ENCOUNTER 2022-02-07 23:26 | Inpatient (IN) | payer MEDICARE ==
[2022-02-07] MEDS ORDERED: DEXTROSE 50% IN WATER (25GM) 50 ML SYRINGE IV ONE (23:50)
--- NOTE | 2022-02-08 00:09 | Emergency Department Report ---
HPI - HPI HPI: Room 23 The patient is a 76-year-old male presenting with a chief complaint of altered mental status. Patient has a history of diabetes and states he takes an oral hypoglycemic every morning like he did this morning at 07: 3 0. Patient states he has not eaten any food all day. Patient states he remembers coming home from work and sitting down to change his clothes and then waking up on the floor. In the ED patient was found to be hypoglycemic and was administered an amp of D50. Patient awakens and is now alert and oriented and denies complaints. <DALTON MORAN - Last Filed: 02/08/22 05:44> <YAMILETH KWOALSKI - Last Filed: 02/08/22 07:23> - General Time Seen by Provider: 02/07/22 23:49 ED Past Medical Hx - Past Medical History Hx Hypertension: Yes Hx Diabetes: Yes Additional medical history: cholestrol - Surgical History Additional Surgical History: left foot - Family History Family history: no significant - Social History Smoking Status: Current Every Day Smoker (1/2 pack/day) Substance Use Type: None <DALTON MORAN - Last Filed: 02/08/22 05:44> <YAMILETH KOWALSKI - Last Filed: 02/08/22 07:23> - Medications Home Medications: Home Medications Medication Instructions Recorded Confirmed Last Taken Type Amlodipine Besylate [Norvasc] 5 mg PO DAILY 01/12/19 01/12/19 Unknown History Ferrous Sulfate [Iron 325 MG] 325 mg PO BID 01/12/19 01/12/19 Unknown History Acetaminophen [Acetaminophen TAB] 650 mg PO Q4H PRN #15 tablet 01/18/19 Unknown Rx Aspirin [Aspirin BABY CHEW TAB] 81 mg PO QDAY #30 tab.chew 01/18/19 Unknown Rx AtorvaSTATin [Lipitor] 40 mg PO QHS #30 tablet 01/18/19 Unknown Rx Clopidogrel [Plavix] 75 mg PO QDAY #30 tablet 01/18/19 Unknown Rx ED Review of Systems ROS: Stated complaint: HYPOGLYCEMIA/COMBATIVE/AMS Other details as noted in HPI Constitutional: no symptoms reported Eyes: denies: eye pain ENT: denies: throat pain Respiratory: no symptoms reported Cardiovascular: denies: chest pain Endocrine: other (Presented with hypoglycemia) Gastrointestinal: denies: abdominal pain Genitourinary: denies: dysuria Musculoskeletal: denies: back pain Neurological: denies: headache <ALEYDA MORANKE Arcadio - Last Filed: 02/08/22 05:44> ROS: Stated complaint: HYPOGLYCEMIA/COMBATIVE/AMS Other details as noted in HPI <YAMILETH KOWALSKI - Last Filed: 02/08/22 07:23> Physical Exam - Physical Exam Physical Exam: GENERAL: The patient is well-developed well-nourished male lying on stretcher not appearing to be in acute distress. [] HEENT: Normocephalic. Atraumatic. Extraocular motions are intact. Patient has moist mucous membranes. NECK: Supple. Trachea midline CHEST/LUNGS: Clear to auscultation. There is no respiratory distress noted. HEART/CARDIOVASCULAR: Regular. There is no tachycardia. There is no gallop rub or murmur. ABDOMEN: Abdomen is soft, nontender. Patient has normal bowel sounds. There is no abdominal distention. SKIN: There is no rash. There is no edema. There is no diaphoresis. NEURO: The patient is awake, alert, and oriented. The patient is cooperative. The patient has no focal neurologic deficits. The patient has normal speech. Cranial nerves II through XII grossly intact. GCS 15 MUSCULOSKELETAL:There is no evidence of acute injury. <TATE MORANMOKE Arcadio - Last Filed: 02/08/22 05:44> - Physical Exam Vital Signs: Vital Signs 02/07/22 02/07/22 02/08/22 23:27 23:46 00:00 Temperature 98.1 F Pulse Rate 44 L 55 L 55 L Respiratory 18 14 17 Rate Blood Pressure 100/60 Blood Pressure [Left] O2 Sat by Pulse 96 97 96 Oximetry 02/08/22 02/08/22 02/08/22 00:16 00:30 00:46 Temperature Pulse Rate 80 54 L 73 Respiratory 23 19 20 Rate Blood Pressure Blood Pressure [Left] O2 Sat by Pulse 92 98 98 Oximetry 02/08/22 02/08/22 02/08/22 01:00 01:16 01:30 Temperature Pulse Rate 76 169 H Respiratory 31 H Rate Blood Pressure Blood Pressure [Left] O2 Sat by Pulse 96 91 95 Oximetry 02/08/22 02/08/22 02/08/22 01:46 02:00 02:16 Temperature Pulse Rate Respiratory Rate Blood Pressure Blood Pressure [Left] O2 Sat by Pulse 99 99 100 Oximetry 02/08/22 02/08/22 02/08/22 02:30 02:46 03:00 Temperature Pulse Rate 79 67 Respiratory Rate Blood Pressure Blood Pressure [Left] O2 Sat by Pulse 97 95 97 Oximetry 02/08/22 02/08/22 02/08/22 03:16 03:30 03:46 Temperature Pulse Rate 126 H 82 58 L Respiratory Rate Blood Pressure Blood Pressure [Left] O2 Sat by Pulse 97 97 99 Oximetry 02/08/22 02/08/22 02/08/22 04:00 04:16 04:30 Temperature Pulse Rate 50 L 68 55 L Respiratory Rate Blood Pressure Blood Pressure [Left] O2 Sat by Pulse 98 98 98 Oximetry 02/08/22 02/08/22 02/08/22 04:46 05:00 05:16 Temperature Pulse Rate 77 77 76 Respiratory Rate Blood Pressure 106/52 106/52 106/52 Blood Pressure [Left] O2 Sat by Pulse 95 98 93 Oximetry 02/08/22 02/08/22 02/08/22 05:30 05:46 06:51 Temperature Pulse Rate 43 L 54 L 66 Respiratory 16 13 10 L Rate Blood Pressure 103/68 86/66 Blood Pressure 134/67 [Left] O2 Sat by Pulse 97 97 99 Oximetry <YAMILETH KOWALSKI - Last Filed: 02/08/22 07:23> ED Course - Reevaluation(s) Reevaluation #1: 02/08/22 05:44 Patient's blood sugar decreased to 39 again despite 2 amps of D50 and a male. We will give a third amp of D50 and initiate D10 drip. Patient will be admitted to the hospital for further observation <DALTON MORAN - Last Filed: 02/08/22 05:44> Vital Signs 02/07/22 02/07/22 02/08/22 23:27 23:46 00:00 Temperature 98.1 F Pulse Rate 44 L 55 L 55 L Respiratory 18 14 17 Rate Blood Pressure 100/60 Blood Pressure [Left] O2 Sat by Pulse 96 97 96 Oximetry 02/08/22 02/08/22 02/08/22 00:16 00:30 00:46 Temperature Pulse Rate 80 54 L 73 Respiratory 23 19 20 Rate Blood Pressure Blood Pressure [Left] O2 Sat by Pulse 92 98 98 Oximetry 02/08/22 02/08/22 02/08/22 01:00 01:16 01:30 Temperature Pulse Rate 76 169 H Respiratory 31 H Rate Blood Pressure Blood Pressure [Left] O2 Sat by Pulse 96 91 95 Oximetry 02/08/22 02/08/22 02/08/22 01:46 02:00 02:16 Temperature Pulse Rate Respiratory Rate Blood Pressure Blood Pressure [Left] O2 Sat by Pulse 99 99 100 Oximetry 02/08/22 02/08/22 02/08/22 02:30 02:46 03:00 Temperature Pulse Rate 79 67 Respiratory Rate Blood Pressure Blood Pressure [Left] O2 Sat by Pulse 97 95 97 Oximetry 02/08/22 02/08/22 02/08/22 03:16 03:30 03:46 Temperature Pulse Rate 126 H 82 58 L Respiratory Rate Blood Pressure Blood Pressure [Left] O2 Sat by Pulse 97 97 99 Oximetry 02/08/22 02/08/22 02/08/22 04:00 04:16 04:30 Temperature Pulse Rate 50 L 68 55 L Respiratory Rate Blood Pressure Blood Pressure [Left] O2 Sat by Pulse 98 98 98 Oximetry 02/08/22 02/08/22 02/08/22 04:46 05:00 05:16 Temperature Pulse Rate 77 77 76 Respiratory Rate Blood Pressure 106/52 106/52 106/52 Blood Pressure [Left] O2 Sat by Pulse 95 98 93 Oximetry 02/08/22 02/08/22 02/08/22 05:30 05:46 06:51 Temperature Pulse Rate 43 L 54 L 66 Respiratory 16 13 10 L Rate Blood Pressure 103/68 86/66 Blood Pressure 134/67 [Left] O2 Sat by Pulse 97 97 99 Oximetry - Reevaluation(s) Reevaluation #1: 02/08/22 07:22 Patient started on D10 drip. I have personally evaluated the patient. He is awake alert, and in no acute distress. Chest x-ray unremarkable. Have ordered TSH, urinalysis. Will defer to the inpatient team to follow these up. Hospital physician, Dr. Vinicio Meyer to admit to [facility] <YAMILETH KOWALSKI - Last Filed: 02/08/22 07:23> ED Medical Decision Making - Lab Data Result diagrams: 02/08/22 00:50 02/08/22 00:50 Laboratory Tests 02/08/22 02/08/22 00:50 00:50 WBC 3.7 L RBC 4.56 Hgb 12.8 Hct 38.5 MCV 85 MCH 28 MCHC 33 RDW 14.9 Plt Count 116 L Lymph % (Auto) 15.8 [place] % (Auto) 8.8 H Eos % (Auto) 2.3 Baso % (Auto) 0.4 Lymph # (Auto) 0.6 L [place] # (Auto) 0.3 Eos # (Auto) 0.1 Baso # (Auto) 0.0 Seg Neutrophils % 72.7 H Seg Neutrophils # 2.7 Sodium 140 Potassium 4.1 Chloride 105.4 Carbon Dioxide 22 Anion Gap 17 BUN 19 Creatinine 1.6 H Estimated GFR 51 BUN/Creatinine Ratio 12 Glucose 158 H Calcium 9.4 - Differential Diagnosis Hypoglycemia <DALTON MORAN - Last Filed: 02/08/22 05:44> - Lab Data Result diagrams: 02/08/22 00:50 02/08/22 00:50 - EKG Data -: EKG Interpreted by Wi EKG shows normal: sinus rhythm Rate: bradycardia - EKG Data 02/08/22 07:22 The EKG is interpreted at 06: 22 This appears to be a sinus rhythm, with a rate of 59 bpm. There is a left axis deviation, premature atrial contractions, motion artifact, with poor R wave progression. The NV interval was 238 ms. The QTC is 438 ms. This is an abnormal EKG. There is no endorsement of chest pain. The EKG is not a STEMI - Radiology Data Radiology results: pending, report reviewed, image reviewed CHEST 1 VIEW INDICATION / CLINICAL INFORMATION: hypoglycemia. COMPARISON: Chest x-ray 01/17/2019 FINDINGS: SUPPORT DEVICES: None. HEART / MEDIASTINUM: No significant abnormality. LUNGS / PLEURA: No significant pulmonary abnormality. BONES: No significant osseous abnormality. ADDITIONAL FINDINGS: No significant additional findings. IMPRESSION: 1. No active cardiopulmonary disease. Signer Name: Floyd Potter II, MD Signed: 02/08/2022 5:39 AM Workstation Name: [id number] <YAMILETH KOWALSKI - Last Filed: 02/08/22 07:23> Critical care attestation.: If time is entered above; I have spent that time in minutes in the direct care of this critically ill patient, excluding procedure time. <DALTON MORAN - Last Filed: 02/08/22 05:44> Critical care attestation.: If time is entered above; I have spent that time in minutes in the direct care of this critically ill patient, excluding procedure time. <YAMILETH KOWALSKI - Last Filed: 02/08/22 07:23> ED Disposition Is pt being admited?: Yes Does the pt Need Aspirin: No Time of Disposition: 05:47 ([facility] <DALTON MORAN - Last Filed: 02/08/22 05:44> Is pt being admited?: Yes Does the pt Need Aspirin: No <YAMILETH KOWALSKI - Last Filed: 02/08/22 07:23> Clinical Impression: Hypoglycemia Disposition: 09 ADMITTED INPATIENT Condition: Fair
[2022-02-08 01:32] LABS: Calcium 9.4 mg/dL (8.4-10.2)
[2022-02-08 02:33] LABS: Basophils % (Auto) 0.4 % (0.0-1.8); Eosinophils # (Auto) 0.1 K/mm3 (0.0-0.4); Eosinophils % (Auto) 2.3 % (0.0-4.3); Hematocrit 38.5 % (35.5-45.6); Hemoglobin 12.8 gm/dl (11.8-15.2); Lymphocytes # (Auto) 0.6 K/mm3 (1.2-5.4); Lymphocytes % (Auto) 15.8 % (13.4-35.0); Mean Corpuscular HGB Conc 33 % (32-34); Mean Corpuscular Volume 85 fl (84-94); Monocytes # (Auto) 0.3 K/mm3 (0.0-0.8); Monocytes % (Auto) 8.8 % (0.0-7.3); Platelet Count 116 K/mm3 (140-440); Red Blood Count 4.56 M/mm3 (3.65-5.03); Red Cell Distribution Width 14.9 % (13.2-15.2)
[2022-02-08] MEDS ORDERED: DEXTROSE 50% IN WATER (25GM) 50 ML SYRINGE IV ONE ×3 (04:01→08:21)
[2022-02-08] MEDS ORDERED: DEXTROSE 10% IN WATER 1,000 ML IV SCH (06:00)
[2022-02-08] MEDS ORDERED: SODIUM CHLORIDE 0.9% 1000 ML 1,000 ML ONE (06:01)
[2022-02-08] MEDS ORDERED: LACTATED RINGERS 1,000 ML IV ONE (06:30)
--- NOTE | 2022-02-08 06:44 | XRay Report ---
CHEST 1 VIEW INDICATION / CLINICAL INFORMATION: hypoglycemia. COMPARISON: Chest x-ray 01/17/2019 FINDINGS: SUPPORT DEVICES: None. HEART / MEDIASTINUM: No significant abnormality. LUNGS / PLEURA: No significant pulmonary abnormality. BONES: No significant osseous abnormality. ADDITIONAL FINDINGS: No significant additional findings. IMPRESSION: 1. No active cardiopulmonary disease. Signer Name: Floyd Potter II, MD Signed: 02/08/2022 6:39 AM Workstation Name: [id number]
[2022-02-08 08:07] LABS: Bilirubin,Urine NEG (Negative); Blood,Urine MOD (Negative); Color,Urine Colorless (Yellow); Protein,Urine <15 mg/dL mg/dL (Negative); Urobilinogen,Urine < 2.0 mg/dL (<2.0)
[2022-02-08 08:10] LABS: RBC,Urine < 1.0 /HPF (0.0-6.0); WBC,Urine < 1.0 /HPF (0.0-6.0)
[2022-02-08] MEDS ORDERED: DEXTROSE 10% *Hypoglycemia IV PRN (08:16)
[2022-02-08] MEDS ORDERED: MORPHINE 4 MG/1 ML INJ IV PRN (10:22)
[2022-02-08] MEDS ORDERED: oxyCODONE /ACETAMINOPHEN 5-325MG TAB PO PRN (10:22)
[2022-02-08] MEDS ORDERED: ONDANSETRON 4 MG/2 ML INJ IV PRN (10:22)
[2022-02-08] MEDS ORDERED: ACETAMINOPHEN 325 MG TAB PO PRN (10:22)
--- NOTE | 2022-02-08 10:22 | History and Physical Report ---
History of Present Illness Date of examination: 02/08/22 Date of admission: 02/08/22 Chief complaint: AMS History of present illness: The patient is a 76-year-old male with h/o DM on oral hypoglycemics, HLD, HTN presenting with a chief complaint of altered mental status. Patient has a history of diabetes and states he takes an oral hypoglycemic every morning like he did this morning at 07: 3 0. Patient states he has not eaten any food all day. Patient states he remembers coming home from work and sitting down to change his clothes and then waking up on the floor. In the ED patient was found to be hypoglycemic and was administered an amp of D50. Patient awakens and is now alert and oriented and denies complaints. Patient is now being admitted for further evaluation and Mx. ROS: Constitutional: no symptoms reported Eyes: denies: eye pain ENT: denies: throat pain Respiratory: no symptoms reported Cardiovascular: denies: chest pain Endocrine: other (Presented with hypoglycemia) Gastrointestinal: denies: abdominal pain Genitourinary: denies: dysuria Musculoskeletal: denies: back pain Neurological: denies: headache Past History Past Medical History: diabetes, hypertension, hyperlipidemia Past Surgical History: No surgical history Social history: lives with family. denies: smoking, alcohol abuse Family history: hypertension Medications and Allergies Allergies Allergy/AdvReac Type Severity Reaction Status Date / Time No Known Allergies Allergy Verified 07/06/18 17:34 Home Medications Medication Instructions Recorded Confirmed Last Taken Type Amlodipine Besylate [Norvasc] 10 mg PO DAILY 01/12/19 02/08/22 02/07/22 History Ferrous Sulfate [Iron 325 MG] 325 mg PO BID 01/12/19 02/08/22 02/07/22 History AtorvaSTATin [Lipitor] 40 mg PO QHS #30 tablet 01/18/19 02/08/22 02/07/22 Rx glipiZIDE 10 mg PO BID 02/08/22 02/08/22 02/07/22 History Active Meds: Active Medications Dextrose (Dextrose 10% *Hypoglycemia) 100 ml IV PRN PRN PRN Reason: Hypoglycemia Dextrose (D10w) 1,000 mls @ 150 mls/hr IV DIRECT NAPOLEON Last Admin: 02/08/22 08:40 Dose: 150 mls/hr Exam - Physical Exam Narrative exam: GENERAL: well-developed and well-nourished elderly male lying on bed appeared to be in no discomfort. HEENT: Normocephalic. Atraumatic. No conjunctival congestion or icterus. Patient has moist mucous membranes. NECK: Supple. Trachea midline. CHEST/LUNGS: Clear to auscultated bilaterally, breathing nonlabored. No wheezes crackles or rhonchi. HEART/CARDIOVASCULAR: Regular in rate and rhythm. S1 and S2 positive. ABDOMEN: Abdomen is soft, nontender. Patient has normal bowel sounds. SKIN: There is no rash. Warm and dry. NEURO: No focal motor deficit. Follows command. MUSCULOSKELETAL: No joint effusion or tenderness. EXTRIMITY: No edema, no cyanosis or clubbing. PSYCH: Cooperative. - Constitutional Vitals: Temp Pulse Resp BP Pulse Ox 98.0 F 56 L 14 165/69 97 02/08/22 09:00 02/08/22 09:00 02/08/22 09:00 02/08/22 09:00 02/08/22 09:00 Results - Labs CBC & Chem 7: 02/08/22 00:50 02/09/22 04:15 Labs: Abnormal lab results 02/08/22 02/08/22 Range/Units 00:50 00:50 WBC 3.7 L (4.5-11.0) K/mm3 Plt Count 116 L (140-440) K/mm3 [place] % (Auto) 8.8 H (0.0-7.3) % Lymph # (Auto) 0.6 L (1.2-5.4) K/mm3 Seg Neutrophils % 72.7 H (40.0-70.0) % Creatinine 1.6 H (0.8-1.3) mg/dL Glucose 158 H (75-100) mg/dL Assessment and Plan Acute Metabolic encephalopathy - due to hypoglyemia Severe hypoglycemia - due to oral hypoglycemics YORDAN Sinus bradycardia HTN HLD DM type 2 -- Admit to [facility] -- place on D5NS, follow BG, resume home meds -- moitor vitals, order 2d echo, avoid BB -- DVT and GI Px
[2022-02-08] MEDS: CLOPIDOGREL 75 MG TAB PO SCH (11:44)
[2022-02-08] MEDS: ASPIRIN 81 MG TAB CHEW PO SCH (11:44)
[2022-02-08] MEDS: amLODIPine 5 MG TAB PO SCH (11:44)
[2022-02-08] MEDS ORDERED: DEXTROSE 50% IN WATER (25GM) 50 ML SYRINGE IV PRN ×2 (12:59→14:00)
[2022-02-08] MEDS: D5W/0.9% NACL 1,000 ML IV SCH (13:53)
[2022-02-08] MEDS: FERROUS SULFATE 325 MG TAB PO SCH (21:40)
[2022-02-09] MEDS: D5W/0.9% NACL 1,000 ML IV SCH (03:13)
[2022-02-09] MEDS: ASPIRIN 81 MG TAB CHEW PO SCH (09:11)
[2022-02-09] MEDS: CLOPIDOGREL 75 MG TAB PO SCH (09:11)
[2022-02-09] MEDS: amLODIPine 5 MG TAB PO SCH (09:11)
[2022-02-09] MEDS: FERROUS SULFATE 325 MG TAB PO SCH ×2 (09:11→21:09)
--- NOTE | 2022-02-09 12:35 | Progress Note ---
Assessment and Plan Acute Metabolic encephalopathy - due to hypoglyemia Severe hypoglycemia - due to oral hypoglycemics YORDAN Sinus bradycardia HTN HLD DM type 2 -- cont to monitor at [facility] --BG much improved, cont cardiac diet -- d/c D5NS, follow BG off D5, cont home meds -- moitor vitals, follow 2d echo, avoid BB -- DVT and GI Px -- if clinically stable off D5NS then possible dc in the am Subjective Date of service: 02/09/22 Interval history: Patient seen and examined. Medical records and medication list reviewed. No acute event overnight noted by the RN. Patient denies any chest pain or difficulty breathing. Patient is tolerating diet. Discussed plan of care at bedside with patient. Objective - Exam Narrative Exam: GENERAL: well-developed and well-nourished lying on bed appeared to be in no discomfort. HEENT: Normocephalic. Atraumatic. No conjunctival congestion or icterus. Patient has moist mucous membranes. NECK: Supple. Trachea midline. CHEST/LUNGS: Clear to auscultated bilaterally, breathing nonlabored. No wheezes crackles or rhonchi. HEART/CARDIOVASCULAR: Regular in rate and rhythm. S1 and S2 positive. ABDOMEN: Abdomen is soft, nontender. Patient has normal bowel sounds. SKIN: There is no rash. Warm and dry. NEURO: No focal motor deficit. Follows command. MUSCULOSKELETAL: No joint effusion or tenderness. EXTRIMITY: No edema, no cyanosis or clubbing. PSYCH: Cooperative. - Constitutional Vitals: Vital Signs - 12hr 02/09/22 07:25 O2 Sat by Pulse 100 Oximetry - Labs CBC & Chem 7: 02/08/22 00:50 02/09/22 04:15 Labs: Abnormal lab results 02/08/22 02/08/22 02/09/22 Range/Units 16:31 20:14 04:15 Chloride 108.9 H (98-107) mmol/L Creatinine 1.4 H (0.8-1.3) mg/dL Glucose 72 L (75-100) mg/dL POC Glucose 43 L 112 H (70-105) mg/dL
[2022-02-10 05:59] VITALS: BP 185/104
[2022-02-10] MEDS ORDERED: hydrALAZINE 20 MG/1 ML INJ IV PRN (06:24)
--- NOTE | 2022-02-10 19:42 | Discharge Summary ---
Providers - Providers Date of Admission: 02/09/22 11:30 Date of discharge: 02/10/22 Attending physician: LAVINIA JACOBS Primary care physician: JESSY TIRADO Hospitalization Condition: Fair Disposition: 07 LEFT AGAINST MEDICAL ADVICE Exam - Constitutional Vitals: Temp Pulse Resp BP Pulse Ox 98.4 F 82 16 185/104 99 02/10/22 05:51 02/10/22 06:44 02/10/22 05:51 02/10/22 06:44 02/10/22 05:51 Plan Follow up with: JESSY TIRADO MD [Primary Care Provider] - 3-5 Days
== END 2022-02-10 08:09 | disposition left against medical advice (07) | DRG 637 ==
LOC: ED 23:26 → 3A 02-08 10:23 → OBSVTOIN 02-09 11:30 → 3A 02-10 06:01
PROVIDERS: ADMIT Internal Medicine Geriatric Medicine; ATTEND Internal Medicine
DX: E11.649 Type 2 diabetes mellitus with hypoglycemia without coma (principal); G93.41 Metabolic encephalopathy; E78.00 Pure hypercholesterolemia, unspecified; N17.9 Acute kidney failure, unspecified; I10 Essential (primary) hypertension; E78.5 Hyperlipidemia, unspecified; K21.9 Gastro-esophageal reflux disease without esophagitis; F17.210 Nicotine dependence, cigarettes, uncomplicated; Z79.899 Other long term (current) drug therapy; Z53.29 Procedure and treatment not carried out because of patient's decision for other reasons; Z82.49 Family history of ischemic heart disease and other diseases of the circulatory system
CPT/HCPCS: 36415; 71045; 80048; 81001; 82140; 82962; 83036; 84443; 85025; 87040; 93005; G0378; J3490; J0360; J7030; J7042; J7120